=== PATIENT | male | born 1950 | race Caucasian/White ===

== ENCOUNTER → 2017-11-26 | Outpatient (CLI) | payer MEDICARE, OTHER | END | disposition home or self-care (01) | LOC: VAS 16:35 | DX: I82.4Z2 Acute embolism and thrombosis of unspecified deep veins of left distal lower extremity (principal) | CPT/HCPCS: 93971 ==

== ENCOUNTER 2017-11-27 09:54 | Day surgery (SDC) | payer MEDICARE, OTHER, MEDICAID ==
[2017-11-27 11:15] LABS: ADD MAN DIFF? NO
[2017-11-27 11:17] LABS: WHITE BLOOD COUNT 11.3 10^3/ul (4.8-10.8)
[2017-11-27 11:17] LABS: BASOPHILS % 0.1 % (0.0-2.0); EOSINOPHILS % 0.1 % (0.0-7.0); HEMOGLOBIN 12.4 g/dl (14.0-18.0); LYMPHOCYTES % 8.8 % (15.0-51.0); MEAN CORPUSCULAR HEMOGLOBIN 35.3 pg (29.0-33.0); MEAN CORPUSCULAR HGB CONC 34.4 g/dl (32.0-37.0); MEAN CORPUSCULAR VOLUME 102.6 fl (82.0-101.0); MEAN PLATELET VOLUME 11.2 fl (7.4-10.4); MONOCYTE # 1.1 10^3/ul (0.3-0.9); MONOCYTES % 9.8 % (0.0-11.0); NEUTROPHIL # 9.1 10^3/ul (1.6-7.5); NEUTROPHILS % 80.4 % (39.0-77.0); PLATELET COUNT 147 10^3/UL (140-415); RED BLOOD COUNT 3.51 10^6/ul (4.70-6.10); RED CELL DISTRIBUTION WIDTH 12.8 % (11.5-14.5)
[2017-11-27 11:42] LABS: ANION GAP 20 (8-16); CARBON DIOXIDE 27 mmol/L (21-31); GLUCOSE 198 mg/dl (70-220)
[2017-11-27 11:47] LABS: BLOOD UREA NITROGEN 41 mg/dl (7-20); CALCIUM 8.2 mg/dl (8.4-10.2); CREATININE 5.75 mg/dl (0.61-1.24); POTASSIUM 4.8 mmol/L (3.5-5.1); SODIUM 137 mmol/L (135-144)
[2017-11-27 11:49] LABS: CHLORIDE 95 mmol/L (97-110)
[2017-11-27 12:20] LABS: PROTIME 13.3 Sec (11.9-14.9)
[2017-11-27] MEDS ORDERED: THROMBIN 5000 UNIT VIAL (12:32)
[2017-11-27] MEDS ORDERED: GELATIN SIZE 100 SPONGE (12:32)
[2017-11-27] MEDS ORDERED: POLYMYXIN/BACITRACIN 1L IRRIG (12:33)
[2017-11-27] MEDS ORDERED: CEFAZOLIN 1 GM INJ (12:54)
[2017-11-27] MEDS ORDERED: PROPOFOL 20 ML (13:22)
[2017-11-27] MEDS ORDERED: LIDOCAINE 2% (SDV) 5 ML INJ (13:22)
[2017-11-27] MEDS: BUPIVACAINE 0.25% (MPF) 30 ML INJ (13:39)
[2017-11-27] MEDS: LIDOCAINE 1% (MPF) 30 ML INJ (13:39)
[2017-11-27] MEDS: HEPARIN 1000 UNITS/ML 10 ML INJ (13:39)
[2017-11-27] MEDS ORDERED: EPHEDrine SULFATE 50 MG/5 ML SYG (13:57)
[2017-11-27] MEDS ORDERED: OXYCODONE/ACETAMINOPHEN (5/325) TAB PO ×2 (14:30)
[2017-11-27] MEDS ORDERED: hydrALAzine 20 MG INJ IV (14:30)
[2017-11-27] MEDS ORDERED: DIPHENHYDRAMINE 50 MG INJ IV (14:30)
[2017-11-27] MEDS ORDERED: MEPERIDINE 25 MG INJ IV (14:30)
[2017-11-27] MEDS ORDERED: EPHEDrine SULFATE 50 MG/5 ML SYG IV (14:30)
[2017-11-27] MEDS ORDERED: ONDANSETRON 4 MG INJ IV (14:30)
[2017-11-27] MEDS ORDERED: LABETALOL HCL 20MG INJ IV (14:30)
[2017-11-27] MEDS ORDERED: METOCLOPRAMIDE 10 MG INJ IV (14:30)
[2017-11-27] MEDS ORDERED: MIDAZOLAM 1 MG/ML 2 ML INJ IV (14:30)
[2017-11-27] MEDS ORDERED: FENTAnyl 50 MCG/ML VIAL IV ×3 (14:30)
== END 2017-11-27 15:53 | disposition home or self-care (01) ==
LOC: SDS 09:54
DX: N18.6 End stage renal disease (principal); I12.0 Hypertensive chronic kidney disease with stage 5 chronic kidney disease or end stage renal disease; E78.5 Hyperlipidemia, unspecified; E11.9 Type 2 diabetes mellitus without complications; Z48.22 Encounter for aftercare following kidney transplant
CPT/HCPCS: 36901; 71045; 80048; 82962; 85025; 85610; 85730; 93005

== ENCOUNTER 2018-05-04 13:04 | Inpatient (IN) | payer MEDICARE, OTHER ==
[2018-05-04 14:07] LABS: ADD MAN DIFF? NO
[2018-05-04 14:09] LABS: ABNORMAL IP MESSAGE 1; BASOPHILS % 0.2 % (0.0-2.0); HEMATOCRIT 38.6 % (42.0-52.0); HEMOGLOBIN 12.8 g/dl (14.0-18.0); LYMPHOCYTES # 0.3 10^3/ul (0.8-2.9); LYMPHOCYTES % 2.7 % (15.0-51.0); MEAN CORPUSCULAR HEMOGLOBIN 33.5 pg (29.0-33.0); MEAN CORPUSCULAR HGB CONC 33.2 g/dl (32.0-37.0); MEAN PLATELET VOLUME 10.6 fl (7.4-10.4); MONOCYTE # 1.1 10^3/ul (0.3-0.9); MONOCYTES % 8.5 % (0.0-11.0); NEUTROPHIL # 11.2 10^3/ul (1.6-7.5); NEUTROPHILS % 87.7 % (39.0-77.0); PLATELET COUNT 140 10^3/UL (140-415); POSITIVE DIFF @See below; RED BLOOD COUNT 3.82 10^6/ul (4.70-6.10); RED CELL DISTRIBUTION WIDTH 12.8 % (11.5-14.5)
[2018-05-04 14:09] LABS: WHITE BLOOD COUNT 12.7 10^3/ul (4.8-10.8)
[2018-05-04 14:28] LABS: ALANINE AMINOTRANSFERASE 15 IU/L (13-69); ALBUMIN 3.3 g/dl (3.3-4.9); ALBUMIN/GLOBULIN RATIO 0.97; ALKALINE PHOSPHATASE 81 IU/L (42-121); ANION GAP 21 (8-16); ASPARTATE AMINO TRANSFERASE 14 IU/L (15-46); BILIRUBIN,INDIRECT 0.7 mg/dl (0-1.1); BILIRUBIN,TOTAL 0.7 mg/dl (0.2-1.3); BLOOD UREA NITROGEN 34 mg/dl (7-20); CALCIUM 8.1 mg/dl (8.4-10.2); CARBON DIOXIDE 23 mmol/L (21-31); CHLORIDE 92 mmol/L (97-110); CREATININE 6.89 mg/dl (0.61-1.24); GLUCOSE 136 mg/dl (70-220); POTASSIUM 4.6 mmol/L (3.5-5.1); SODIUM 131 mmol/L (135-144); TOTAL PROTEIN 6.7 g/dl (6.1-8.1)
[2018-05-04 14:29] LABS: INR 1.09; PROTIME 14.2 Sec (11.9-14.9); PT RATIO 1.1
[2018-05-04 14:31] LABS: LACTIC ACID 2.1 mmol/L (0.5-2.0)
[2018-05-04 14:38] LABS: TROPONIN-I 0.035 ng/ml (0.000-0.120)
[2018-05-04 14:39] LABS: PARTIAL THROMBOPLASTIN TIME 63.6 Sec (25.0-35.0)
[2018-05-04] MEDS: PIPER-TAZO 2.25 GM (PMX) 50 ML IVPB (15:43)
[2018-05-04] MEDS: VANCOMYCIN 1 GM (PMX) 250 ML IVPB (16:03)
[2018-05-04 16:24] LABS: LACTIC ACID 3.3 mmol/L (0.5-2.0)
[2018-05-04] MEDS ORDERED: VANCOMYCIN IV PER PHARMACY XX (17:30)
[2018-05-04] MEDS ORDERED: DOCUSATE SODIUM 100 MG CAP PO (17:30)
[2018-05-04] MEDS ORDERED: NACL 0.9% 3 ML SYG IV (17:30)
[2018-05-04] MEDS ORDERED: ONDANSETRON 4 MG INJ IV (17:30)
[2018-05-04] MEDS ORDERED: GLUCAGON 1 MG INJ IM (18:00)
[2018-05-04] MEDS ORDERED: GLUCOSE GEL 15 GRAM TUBE PO ×2 (18:00)
[2018-05-04] MEDS ORDERED: GLUCOSE GEL 15 GRAM TUBE BUCCAL (18:00)
[2018-05-04] MEDS: INSULIN ASPART [NOVOLOG] 3 ML PEN SC ×2 (18:00→21:00)
[2018-05-04] MEDS ORDERED: DEXTROSE 50% 50 ML SYRINGE IV ×2 (18:00)
[2018-05-04 18:37] LABS: LACTIC ACID 1.8 mmol/L (0.5-2.0)
[2018-05-04 19:04] LABS: TROPONIN-I 0.039 ng/ml (0.000-0.120)
[2018-05-04] MEDS: Discontinue current oral sulfonylureas (glyburide, glipizide, and/or glimepiride) prior to XX (19:31)
[2018-05-04] MEDS: HYPOGLYCEMIA PROTOCOL when Glucose is <70 mg/dL or symptomatic <90 mg/dL. XX (19:31)
[2018-05-04] MEDS: MIDODRINE 5 MG TAB PO (21:00)
[2018-05-04] MEDS: HYDROCODONE/APAP (5/325) TAB PO (21:30)
[2018-05-04] MEDS: HEPARIN 5,000 UNIT/0.5 ML VIAL SC (21:35)
[2018-05-04] MEDS: INSULIN DETEMIR [LEVEMIR] 3ML CART SC (22:26)
[2018-05-04] MEDS: SOD CHLORIDE 0.9% 1,000 ML IV (22:27)
[2018-05-04] MEDS: MEROPENEM 500MG/50 ML (PMX) 50 ML IVPB (22:27)
[2018-05-05] MEDS: ACCU-CHEK XX (02:00)
[2018-05-05] MEDS: PANTOPRAZOLE 40 MG INJ IV (05:15)
[2018-05-05] MEDS ORDERED: PENDING SANTYL ORDER FOR WOUND CARE XX (05:30)
[2018-05-05] MEDS: INSULIN ASPART [NOVOLOG] 3 ML PEN SC ×4 (08:00→20:54)
[2018-05-05] MEDS: MIDODRINE 5 MG TAB PO ×2 (08:11→20:57)
[2018-05-05] MEDS: HYDROCODONE/APAP (5/325) TAB PO ×2 (08:12→13:43)
[2018-05-05] MEDS: HEPARIN 5,000 UNIT/0.5 ML VIAL SC ×2 (08:15→21:03)
[2018-05-05 08:54] LABS: ADD MAN DIFF? NO
[2018-05-05 08:58] LABS: WHITE BLOOD COUNT 7.9 10^3/ul (4.8-10.8)
[2018-05-05 08:58] LABS: BASOPHILS % 0.1 % (0.0-2.0); EOSINOPHILS # 0.1 10^3/ul (0.0-0.5); HEMATOCRIT 37.7 % (42.0-52.0); HEMOGLOBIN 12.5 g/dl (14.0-18.0); LYMPHOCYTES # 0.8 10^3/ul (0.8-2.9); LYMPHOCYTES % 10.6 % (15.0-51.0); MEAN CORPUSCULAR HEMOGLOBIN 33.4 pg (29.0-33.0); MEAN CORPUSCULAR HGB CONC 33.2 g/dl (32.0-37.0); MEAN CORPUSCULAR VOLUME 100.8 fl (82.0-101.0); MEAN PLATELET VOLUME 10.4 fl (7.4-10.4); MONOCYTE # 0.8 10^3/ul (0.3-0.9); MONOCYTES % 10.3 % (0.0-11.0); NEUTROPHIL # 6.1 10^3/ul (1.6-7.5); NEUTROPHILS % 77.2 % (39.0-77.0); PLATELET COUNT 139 10^3/UL (140-415); RED BLOOD COUNT 3.74 10^6/ul (4.70-6.10); RED CELL DISTRIBUTION WIDTH 12.8 % (11.5-14.5)
[2018-05-05 09:21] LABS: ALANINE AMINOTRANSFERASE 15 IU/L (13-69); ALBUMIN 2.9 g/dl (3.3-4.9); ALBUMIN/GLOBULIN RATIO 0.96; ALKALINE PHOSPHATASE 74 IU/L (42-121); ANION GAP 15 (8-16); ASPARTATE AMINO TRANSFERASE 13 IU/L (15-46); BILIRUBIN,INDIRECT 0.2 mg/dl (0-1.1); BILIRUBIN,TOTAL 0.2 mg/dl (0.2-1.3); BLOOD UREA NITROGEN 49 mg/dl (7-20); CALCIUM 8.2 mg/dl (8.4-10.2); CARBON DIOXIDE 25 mmol/L (21-31); CHLORIDE 97 mmol/L (97-110); CREATININE 8.08 mg/dl (0.61-1.24); GLUCOSE 76 mg/dl (70-220); MAGNESIUM 2.4 mg/dl (1.7-2.5); PHOSPHORUS 5.5 mg/dl (2.5-4.9); POTASSIUM 4.1 mmol/L (3.5-5.1); SODIUM 133 mmol/L (135-144); TOTAL PROTEIN 5.9 g/dl (6.1-8.1)
[2018-05-05] MEDS: SOD CHLORIDE 0.9% 1,000 ML IV (13:13)
[2018-05-05] MEDS ORDERED: ALBUMIN HUMAN 25% 100 ML IV (18:00)
[2018-05-05] MEDS: morphine 2 MG INJ IV (18:22)
[2018-05-05 18:48] LABS: ADD UMIC YES; UR ASCORBIC ACID NEGATIVE (NEGATIVE); UR BACTERIA MODERATE /HPF (NONE SEEN); UR BILIRUBIN (Dip) NEGATIVE (NEGATIVE); UR BLOOD (Dip) 2+ mg/dL (NEGATIVE); UR CLARITY CLOUDY (CLEAR); UR COLOR YELLOW (YELLOW); UR GLUCOSE (Dip) NEGATIVE (NEGATIVE); UR KETONES (Dip) TRACE mg/dL (NEGATIVE); UR LEUKOCYTE ESTERASE (Dip) 3+ Leu/ul (NEGATIVE); UR MUCUS FEW /HPF (NONE SEEN); UR NITRITE (Dip) NEGATIVE (NEGATIVE); UR RBC 28 /HPF (0-5); UR SPECIFIC GRAVITY (Dip) 1.011 (1.003-1.030); UR TOTAL PROTEIN (Dip) 3+ mg/dl (NEGATIVE); UR UROBILINOGEN (Dip) NEGATIVE (NEGATIVE); UR WBC > 182 /HPF (0-5)
[2018-05-05] MEDS: MEROPENEM 500MG/50 ML (PMX) 50 ML IVPB (20:56)
[2018-05-05] MEDS ORDERED: INSULIN DETEMIR [LEVEMIR] 3ML CART SC (21:00)
[2018-05-06] MEDS: morphine 2 MG INJ IV ×3 (00:50→14:09)
[2018-05-06] MEDS: ACCU-CHEK XX (01:51)
[2018-05-06] MEDS: HYDROCODONE/APAP (5/325) TAB PO ×2 (02:44→11:02)
[2018-05-06] MEDS: PANTOPRAZOLE 40 MG INJ IV (06:06)
[2018-05-06 07:53] LABS: ADD MAN DIFF? NO
[2018-05-06 07:59] LABS: BASOPHILS % 0.1 % (0.0-2.0); EOSINOPHILS # 0.1 10^3/ul (0.0-0.5); EOSINOPHILS % 0.8 % (0.0-7.0); HEMATOCRIT 38.5 % (42.0-52.0); HEMOGLOBIN 12.5 g/dl (14.0-18.0); LYMPHOCYTES # 0.8 10^3/ul (0.8-2.9); LYMPHOCYTES % 10.4 % (15.0-51.0); MEAN CORPUSCULAR HEMOGLOBIN 32.6 pg (29.0-33.0); MEAN CORPUSCULAR HGB CONC 32.5 g/dl (32.0-37.0); MEAN CORPUSCULAR VOLUME 100.5 fl (82.0-101.0); MEAN PLATELET VOLUME 10.5 fl (7.4-10.4); MONOCYTE # 0.7 10^3/ul (0.3-0.9); MONOCYTES % 8.4 % (0.0-11.0); NEUTROPHIL # 6.4 10^3/ul (1.6-7.5); NEUTROPHILS % 79.5 % (39.0-77.0); PLATELET COUNT 155 10^3/UL (140-415); RED BLOOD COUNT 3.83 10^6/ul (4.70-6.10); RED CELL DISTRIBUTION WIDTH 12.7 % (11.5-14.5)
[2018-05-06] MEDS: INSULIN ASPART [NOVOLOG] 3 ML PEN SC ×4 (08:00→21:00)
[2018-05-06] MEDS: MIDODRINE 5 MG TAB PO ×3 (08:04→21:27)
[2018-05-06] MEDS: predniSONE 5 MG TAB PO (08:09)
[2018-05-06] MEDS: MULTIVIT/CA CARB/B CMPLX/FA TAB PO (08:09)
[2018-05-06] MEDS: HEPARIN 5,000 UNIT/0.5 ML VIAL SC ×2 (08:10→21:00)
[2018-05-06 08:37] LABS: ANION GAP 19 (8-16); BLOOD UREA NITROGEN 55 mg/dl (7-20); CALCIUM 8.2 mg/dl (8.4-10.2); CARBON DIOXIDE 20 mmol/L (21-31); CHLORIDE 98 mmol/L (97-110); GLUCOSE 80 mg/dl (70-220); POTASSIUM 4.6 mmol/L (3.5-5.1); SODIUM 132 mmol/L (135-144)
[2018-05-06 08:38] LABS: PHOSPHORUS 5.4 mg/dl (2.5-4.9); VANCOMYCIN,RANDOM 8.9 ug/ml
[2018-05-06 08:38] LABS: MAGNESIUM 2.4 mg/dl (1.7-2.5)
[2018-05-06] MEDS: VANCOMYCIN 1 GM 250 ML IVPB (12:02)
[2018-05-06] MEDS ORDERED: GENTAMICIN IV PER PHARMACY XX (16:00)
[2018-05-06] MEDS: HYDROCODONE/APAP (10/325) TAB PO (17:06)
[2018-05-06 18:38] LABS: TROPONIN-I 0.013 ng/ml (0.000-0.120)
[2018-05-06 18:42] LABS: CK-MB 1.28 ng/ml (0.0-2.4); CREATINE KINASE < 20 IU/L (23-200)
[2018-05-06 21:38] LABS: HEPATITIS B SURFACE ANTIGEN NEGATIVE (NEGATIVE)
[2018-05-06] MEDS: ALBUMIN HUMAN 25% 100 ML IV (22:22)
[2018-05-06] MEDS: HEPARIN 1000 UNITS/ML 10 ML INJ CATHETER (23:53)
[2018-05-07] MEDS: HYDROCODONE/APAP (10/325) TAB PO ×2 (00:49→08:43)
[2018-05-07] MEDS: GENTAMICIN 140 MG in DEXTROSE 5% 100 ML IVPB (00:51)
[2018-05-07 01:04] LABS: CREATINE KINASE 20 IU/L (23-200)
[2018-05-07 01:17] LABS: CK INDEX 6.7; TROPONIN-I 0.019 ng/ml (0.000-0.120)
[2018-05-07 01:27] LABS: CK-MB 1.34 ng/ml (0.0-2.4)
[2018-05-07] MEDS: ACCU-CHEK XX (02:00)
[2018-05-07] MEDS: PANTOPRAZOLE 40 MG INJ IV (05:33)
[2018-05-07] MEDS ORDERED: GENTAMICIN 80 MG/NS (PMX) 50 ML IVPB (07:00)
[2018-05-07] MEDS: INSULIN ASPART [NOVOLOG] 3 ML PEN SC ×4 (08:00→21:00)
[2018-05-07 08:15] LABS: ADD MAN DIFF? NO
[2018-05-07 08:20] LABS: WHITE BLOOD COUNT 7.1 10^3/ul (4.8-10.8)
[2018-05-07 08:20] LABS: ABNORMAL IP MESSAGE 1; BASOPHILS % 0.1 % (0.0-2.0); EOSINOPHILS # 0.1 10^3/ul (0.0-0.5); EOSINOPHILS % 0.8 % (0.0-7.0); HEMATOCRIT 38.4 % (42.0-52.0); HEMOGLOBIN 12.2 g/dl (14.0-18.0); LYMPHOCYTES # 0.6 10^3/ul (0.8-2.9); LYMPHOCYTES % 8.1 % (15.0-51.0); MEAN CORPUSCULAR HEMOGLOBIN 32.5 pg (29.0-33.0); MEAN CORPUSCULAR HGB CONC 31.8 g/dl (32.0-37.0); MEAN CORPUSCULAR VOLUME 102.4 fl (82.0-101.0); MEAN PLATELET VOLUME 10.2 fl (7.4-10.4); MONOCYTE # 0.7 10^3/ul (0.3-0.9); MONOCYTES % 10.4 % (0.0-11.0); NEUTROPHIL # 5.7 10^3/ul (1.6-7.5); NEUTROPHILS % 80.2 % (39.0-77.0); PLATELET COUNT 175 10^3/UL (140-415); POSITIVE DIFF @See below; RED BLOOD COUNT 3.75 10^6/ul (4.70-6.10); RED CELL DISTRIBUTION WIDTH 12.8 % (11.5-14.5)
[2018-05-07] MEDS: MULTIVIT/CA CARB/B CMPLX/FA TAB PO (08:42)
[2018-05-07] MEDS: predniSONE 5 MG TAB PO (08:42)
[2018-05-07] MEDS: MIDODRINE 5 MG TAB PO ×2 (08:43→20:29)
[2018-05-07 08:45] LABS: MAGNESIUM 2.3 mg/dl (1.7-2.5)
[2018-05-07 08:52] LABS: ANION GAP 19 (8-16); BLOOD UREA NITROGEN 30 mg/dl (7-20); CALCIUM 8.3 mg/dl (8.4-10.2); CARBON DIOXIDE 25 mmol/L (21-31); CHLORIDE 99 mmol/L (97-110); CREATININE 5.88 mg/dl (0.61-1.24); GLUCOSE 97 mg/dl (70-220); POTASSIUM 4.7 mmol/L (3.5-5.1); SODIUM 138 mmol/L (135-144)
[2018-05-07] MEDS: HEPARIN 5,000 UNIT/0.5 ML VIAL SC ×2 (08:54→20:29)
[2018-05-07] MEDS: morphine LIQ (10 MG/5 ML) CUP PO ×3 (10:39→18:54)
[2018-05-07] MEDS ORDERED: SODIUM CHLORIDE 0.9% 1L BAG IV (17:00)
[2018-05-08] MEDS: ACCU-CHEK XX (02:00)
[2018-05-08] MEDS: morphine LIQ (10 MG/5 ML) CUP PO ×3 (04:48→14:47)
[2018-05-08] MEDS: PANTOPRAZOLE 40 MG INJ IV (05:49)
[2018-05-08 07:33] LABS: ADD MAN DIFF? NO
[2018-05-08 07:41] LABS: BASOPHILS % 0.1 % (0.0-2.0); EOSINOPHILS # 0.1 10^3/ul (0.0-0.5); EOSINOPHILS % 1.5 % (0.0-7.0); HEMATOCRIT 37.4 % (42.0-52.0); HEMOGLOBIN 12.1 g/dl (14.0-18.0); LYMPHOCYTES # 0.7 10^3/ul (0.8-2.9); LYMPHOCYTES % 9.7 % (15.0-51.0); MEAN CORPUSCULAR HGB CONC 32.4 g/dl (32.0-37.0); MEAN CORPUSCULAR VOLUME 101.9 fl (82.0-101.0); MEAN PLATELET VOLUME 9.8 fl (7.4-10.4); MONOCYTE # 0.6 10^3/ul (0.3-0.9); NEUTROPHIL # 5.5 10^3/ul (1.6-7.5); NEUTROPHILS % 80.3 % (39.0-77.0); PLATELET COUNT 180 10^3/UL (140-415); RED BLOOD COUNT 3.67 10^6/ul (4.70-6.10); RED CELL DISTRIBUTION WIDTH 12.7 % (11.5-14.5)
[2018-05-08 07:41] LABS: WHITE BLOOD COUNT 6.9 10^3/ul (4.8-10.8)
[2018-05-08] MEDS: INSULIN ASPART [NOVOLOG] 3 ML PEN SC ×4 (08:00→20:49)
[2018-05-08 08:04] LABS: MAGNESIUM 2.3 mg/dl (1.7-2.5)
[2018-05-08 08:04] LABS: PHOSPHORUS 5.4 mg/dl (2.5-4.9)
[2018-05-08 08:05] LABS: ANION GAP 14 (8-16); BLOOD UREA NITROGEN 43 mg/dl (7-20); CALCIUM 8.4 mg/dl (8.4-10.2); CARBON DIOXIDE 25 mmol/L (21-31); CHLORIDE 101 mmol/L (97-110); CREATININE 7.24 mg/dl (0.61-1.24); GLUCOSE 138 mg/dl (70-220); POTASSIUM 4.1 mmol/L (3.5-5.1); SODIUM 136 mmol/L (135-144)
[2018-05-08] MEDS: predniSONE 5 MG TAB PO (08:49)
[2018-05-08] MEDS: MIDODRINE 5 MG TAB PO ×2 (08:49→20:49)
[2018-05-08] MEDS: MULTIVIT/CA CARB/B CMPLX/FA TAB PO (08:49)
[2018-05-08] MEDS: HEPARIN 5,000 UNIT/0.5 ML VIAL SC ×2 (09:00→20:49)
[2018-05-08] MEDS: HYDROCODONE/APAP (10/325) TAB PO ×3 (11:38→23:47)
[2018-05-08] MEDS: HEPARIN 1000 UNITS/ML 10 ML INJ CATHETER (12:18)
[2018-05-08] MEDS: LIDOCAINE 1% (MDV) 10 ML INJ (15:37)
[2018-05-08] MEDS: GENTAMICIN 100 MG/50 ML NS IVPB (17:45)
[2018-05-09] MEDS: ACCU-CHEK XX (02:00)
[2018-05-09] MEDS: HYDROCODONE/APAP (10/325) TAB PO ×5 (04:43→20:59)
[2018-05-09] MEDS: PANTOPRAZOLE 40 MG INJ IV (07:01)
[2018-05-09] MEDS: INSULIN ASPART [NOVOLOG] 3 ML PEN SC ×4 (08:12→20:43)
[2018-05-09] MEDS: MULTIVIT/CA CARB/B CMPLX/FA TAB PO (08:54)
[2018-05-09] MEDS: predniSONE 5 MG TAB PO (08:54)
[2018-05-09] MEDS: MIDODRINE 5 MG TAB PO ×2 (09:00→20:37)
[2018-05-09] MEDS: HEPARIN 5,000 UNIT/0.5 ML VIAL SC ×2 (09:02→20:40)
[2018-05-10] MEDS: ACCU-CHEK XX (02:00)
[2018-05-10] MEDS: PANTOPRAZOLE 40 MG INJ IV (05:27)
[2018-05-10] MEDS: HYDROCODONE/APAP (10/325) TAB PO ×5 (05:30→23:53)
[2018-05-10 06:04] LABS: ANION GAP 15 (8-16); BLOOD UREA NITROGEN 36 mg/dl (7-20); CALCIUM 8.2 mg/dl (8.4-10.2); CARBON DIOXIDE 27 mmol/L (21-31); CHLORIDE 99 mmol/L (97-110); CREATININE 6.22 mg/dl (0.61-1.24); GLUCOSE 123 mg/dl (70-220); POTASSIUM 4.6 mmol/L (3.5-5.1); SODIUM 136 mmol/L (135-144)
[2018-05-10] MEDS: INSULIN ASPART [NOVOLOG] 3 ML PEN SC ×4 (08:00→21:00)
[2018-05-10] MEDS: HEPARIN 5,000 UNIT/0.5 ML VIAL SC ×2 (08:20→21:00)
[2018-05-10] MEDS: predniSONE 5 MG TAB PO (08:21)
[2018-05-10] MEDS: MULTIVIT/CA CARB/B CMPLX/FA TAB PO (08:21)
[2018-05-10] MEDS: BALSAM PERU/CASTOR OIL 60 GM TUBE TOP ×2 (08:22→22:56)
[2018-05-10] MEDS: MIDODRINE 5 MG TAB PO (08:22)
[2018-05-11] MEDS: DEXTROSE 5%-0.45% NACL 1,000 ML IV (00:03)
[2018-05-11] MEDS: INSULIN ASPART [NOVOLOG] 3 ML PEN SC ×6 (01:00→21:00)
[2018-05-11] MEDS: ACCU-CHEK XX (02:00)
[2018-05-11] MEDS: PANTOPRAZOLE 40 MG INJ IV (05:16)
[2018-05-11 06:10] LABS: ADD MAN DIFF? NO
[2018-05-11 06:19] LABS: BASOPHILS % 0.3 % (0.0-2.0); EOSINOPHILS # 0.1 10^3/ul (0.0-0.5); EOSINOPHILS % 1.7 % (0.0-7.0); HEMATOCRIT 38.8 % (42.0-52.0); HEMOGLOBIN 12.5 g/dl (14.0-18.0); LYMPHOCYTES # 0.8 10^3/ul (0.8-2.9); LYMPHOCYTES % 11.4 % (15.0-51.0); MEAN CORPUSCULAR HEMOGLOBIN 32.6 pg (29.0-33.0); MEAN CORPUSCULAR HGB CONC 32.2 g/dl (32.0-37.0); MEAN PLATELET VOLUME 10.5 fl (7.4-10.4); MONOCYTE # 0.8 10^3/ul (0.3-0.9); MONOCYTES % 11.1 % (0.0-11.0); NEUTROPHIL # 5.2 10^3/ul (1.6-7.5); NEUTROPHILS % 74.2 % (39.0-77.0); PLATELET COUNT 162 10^3/UL (140-415); RED BLOOD COUNT 3.84 10^6/ul (4.70-6.10); RED CELL DISTRIBUTION WIDTH 12.6 % (11.5-14.5)
[2018-05-11 06:29] LABS: ALANINE AMINOTRANSFERASE 23 IU/L (13-69); ALBUMIN 2.8 g/dl (3.3-4.9); ALBUMIN/GLOBULIN RATIO 0.93; ALKALINE PHOSPHATASE 84 IU/L (42-121); ASPARTATE AMINO TRANSFERASE 17 IU/L (15-46); BILIRUBIN,INDIRECT 0.1 mg/dl (0-1.1); BILIRUBIN,TOTAL 0.1 mg/dl (0.2-1.3); BLOOD UREA NITROGEN 48 mg/dl (7-20); CALCIUM 8.1 mg/dl (8.4-10.2); CARBON DIOXIDE 23 mmol/L (21-31); CHLORIDE 98 mmol/L (97-110); CREATININE 7.07 mg/dl (0.61-1.24); GLUCOSE 128 mg/dl (70-220); POTASSIUM 4.6 mmol/L (3.5-5.1); TOTAL PROTEIN 5.8 g/dl (6.1-8.1)
[2018-05-11 07:01] LABS: ANION GAP 15 (8-16)
[2018-05-11 07:09] LABS: SODIUM 131 mmol/L (135-144)
[2018-05-11] MEDS: morphine 2 MG INJ IV (07:54)
[2018-05-11] MEDS: predniSONE 5 MG TAB PO (08:50)
[2018-05-11] MEDS: MULTIVIT/CA CARB/B CMPLX/FA TAB PO (08:50)
[2018-05-11] MEDS: HEPARIN 5,000 UNIT/0.5 ML VIAL SC ×2 (08:51→21:00)
[2018-05-11] MEDS: BALSAM PERU/CASTOR OIL 60 GM TUBE TOP ×2 (08:55→21:04)
[2018-05-11] MEDS ORDERED: LIDOCAINE 1% (MDV) 20 ML INJ (14:59)
[2018-05-11] MEDS ORDERED: HEPARIN 1000 UNITS/ML 10 ML INJ (14:59)
[2018-05-11] MEDS ORDERED: MIDAZOLAM 1 MG/ML 2 ML INJ (15:17)
[2018-05-11] MEDS ORDERED: FENTAnyl 50 MCG/ML VIAL (15:17)
[2018-05-11] MEDS ORDERED: SOD CHLORIDE 0.9% 500 ML (15:23)
[2018-05-11] MEDS ORDERED: ALBUMIN HUMAN 25% 50 ML IV (18:00)
[2018-05-11] MEDS ORDERED: SOD CHLORIDE 0.9% 1,000 ML IV (18:00)
[2018-05-11] MEDS: HYDROCODONE/APAP (10/325) TAB PO (18:26)
[2018-05-11] MEDS: METOPROLOL 25 MG TAB PO (21:04)
[2018-05-12] MEDS: DEXTROSE 5%-0.45% NACL 1,000 ML IV (00:06)
[2018-05-12] MEDS: INSULIN ASPART [NOVOLOG] 3 ML PEN SC ×6 (01:00→21:00)
[2018-05-12] MEDS: HYDROCODONE/APAP (10/325) TAB PO ×3 (01:52→11:35)
[2018-05-12] MEDS: ACCU-CHEK XX (02:00)
[2018-05-12] MEDS: PANTOPRAZOLE 40 MG INJ IV (05:26)
[2018-05-12 05:51] LABS: ADD MAN DIFF? NO
[2018-05-12 06:00] LABS: WHITE BLOOD COUNT 9.9 10^3/ul (4.8-10.8)
[2018-05-12 06:00] LABS: ABNORMAL IP MESSAGE 1; BASOPHILS % 0.3 % (0.0-2.0); EOSINOPHILS # 0.1 10^3/ul (0.0-0.5); EOSINOPHILS % 0.9 % (0.0-7.0); HEMATOCRIT 36.2 % (42.0-52.0); HEMOGLOBIN 12.2 g/dl (14.0-18.0); LYMPHOCYTES # 0.6 10^3/ul (0.8-2.9); LYMPHOCYTES % 5.5 % (15.0-51.0); MEAN CORPUSCULAR HEMOGLOBIN 33.7 pg (29.0-33.0); MEAN CORPUSCULAR HGB CONC 33.7 g/dl (32.0-37.0); MEAN PLATELET VOLUME 10.1 fl (7.4-10.4); MONOCYTE # 0.7 10^3/ul (0.3-0.9); MONOCYTES % 7.5 % (0.0-11.0); NEUTROPHIL # 8.4 10^3/ul (1.6-7.5); NEUTROPHILS % 84.4 % (39.0-77.0); PLATELET COUNT 219 10^3/UL (140-415); POSITIVE DIFF @See below; RED BLOOD COUNT 3.62 10^6/ul (4.70-6.10); RED CELL DISTRIBUTION WIDTH 12.6 % (11.5-14.5)
[2018-05-12 06:13] LABS: PHOSPHORUS 6.1 mg/dl (2.5-4.9)
[2018-05-12 06:32] LABS: ANION GAP 17 (8-16); BLOOD UREA NITROGEN 56 mg/dl (7-20); CALCIUM 7.8 mg/dl (8.4-10.2); CARBON DIOXIDE 22 mmol/L (21-31); CHLORIDE 97 mmol/L (97-110); CREATININE 8.13 mg/dl (0.61-1.24); GLUCOSE 127 mg/dl (70-220); POTASSIUM 5.3 mmol/L (3.5-5.1); SODIUM 131 mmol/L (135-144)
[2018-05-12] MEDS: predniSONE 5 MG TAB PO (07:43)
[2018-05-12] MEDS: MULTIVIT/CA CARB/B CMPLX/FA TAB PO (07:44)
[2018-05-12] MEDS: METOPROLOL 25 MG TAB PO ×2 (08:54→20:38)
[2018-05-12] MEDS: HEPARIN 5,000 UNIT/0.5 ML VIAL SC ×2 (08:54→20:39)
[2018-05-12] MEDS: BALSAM PERU/CASTOR OIL 60 GM TUBE TOP ×2 (09:24→20:35)
[2018-05-12] MEDS ORDERED: HEPARIN 1000 UNITS/NS (A-LINE) 0 ML (14:36)
[2018-05-12] MEDS ORDERED: HEPARIN 1000 UNITS/ML 10 ML INJ (14:36)
[2018-05-12] MEDS ORDERED: LIDOCAINE 1% (MDV) 20 ML INJ ×2 (14:49→15:13)
[2018-05-12] MEDS: ALBUMIN HUMAN 25% 50 ML IV (18:06)
[2018-05-12] MEDS: HEPARIN 1000 UNITS/ML 10 ML INJ CATHETER (20:21)
[2018-05-13] MEDS: ACCU-CHEK XX (02:00)
[2018-05-13] MEDS: HYDROCODONE/APAP (10/325) TAB PO ×4 (02:07→20:00)
[2018-05-13] MEDS: PANTOPRAZOLE 40 MG INJ IV (05:16)
[2018-05-13] MEDS: morphine LIQ (10 MG/5 ML) CUP PO ×4 (06:04→06:52)
[2018-05-13] MEDS: INSULIN ASPART [NOVOLOG] 3 ML PEN SC ×4 (07:30→21:00)
[2018-05-13] MEDS: BALSAM PERU/CASTOR OIL 60 GM TUBE TOP ×2 (08:39→21:11)
[2018-05-13] MEDS: MULTIVIT/CA CARB/B CMPLX/FA TAB PO (08:39)
[2018-05-13] MEDS: predniSONE 5 MG TAB PO (08:39)
[2018-05-13] MEDS: HEPARIN 5,000 UNIT/0.5 ML VIAL SC ×2 (08:40→21:13)
[2018-05-13] MEDS: NIFEdipine (XL) 30 MG TAB PO (08:41)
[2018-05-13] MEDS: METOPROLOL 25 MG TAB PO ×2 (08:42→21:11)
[2018-05-13] MEDS: GENTAMICIN 100 MG/50 ML NS IVPB (14:34)
[2018-05-14] MEDS: HYDROCODONE/APAP (10/325) TAB PO ×6 (00:08→22:56)
[2018-05-14] MEDS: ACCU-CHEK XX (00:43)
[2018-05-14 06:00] LABS: ADD MAN DIFF? NO
[2018-05-14 06:07] LABS: BASOPHILS % 0.1 % (0.0-2.0); EOSINOPHILS # 0.1 10^3/ul (0.0-0.5); EOSINOPHILS % 0.9 % (0.0-7.0); HEMATOCRIT 33.4 % (42.0-52.0); LYMPHOCYTES % 11.9 % (15.0-51.0); MEAN CORPUSCULAR HEMOGLOBIN 32.5 pg (29.0-33.0); MEAN CORPUSCULAR HGB CONC 32.9 g/dl (32.0-37.0); MEAN CORPUSCULAR VOLUME 98.8 fl (82.0-101.0); MONOCYTE # 1.2 10^3/ul (0.3-0.9); MONOCYTES % 14.4 % (0.0-11.0); NEUTROPHIL # 5.8 10^3/ul (1.6-7.5); NEUTROPHILS % 71.7 % (39.0-77.0); PLATELET COUNT 229 10^3/UL (140-415); RED BLOOD COUNT 3.38 10^6/ul (4.70-6.10)
[2018-05-14] MEDS: PANTOPRAZOLE 40 MG INJ IV (06:10)
[2018-05-14 06:36] LABS: ALANINE AMINOTRANSFERASE 20 IU/L (13-69); ALBUMIN/GLOBULIN RATIO 0.93; ALKALINE PHOSPHATASE 83 IU/L (42-121); ANION GAP 15 (8-16); ASPARTATE AMINO TRANSFERASE 21 IU/L (15-46); BILIRUBIN,INDIRECT 0.3 mg/dl (0-1.1); BILIRUBIN,TOTAL 0.3 mg/dl (0.2-1.3); BLOOD UREA NITROGEN 37 mg/dl (7-20); CALCIUM 7.8 mg/dl (8.4-10.2); CARBON DIOXIDE 25 mmol/L (21-31); CHLORIDE 95 mmol/L (97-110); CREATININE 6.24 mg/dl (0.61-1.24); GLUCOSE 103 mg/dl (70-220); POTASSIUM 4.2 mmol/L (3.5-5.1); SODIUM 131 mmol/L (135-144); TOTAL PROTEIN 6.2 g/dl (6.1-8.1)
[2018-05-14] MEDS: INSULIN ASPART [NOVOLOG] 3 ML PEN SC ×4 (07:30→20:20)
[2018-05-14] MEDS: NIFEdipine (XL) 30 MG TAB PO (08:51)
[2018-05-14] MEDS: HEPARIN 5,000 UNIT/0.5 ML VIAL SC ×3 (08:51→22:56)
[2018-05-14] MEDS: METOPROLOL 25 MG TAB PO ×2 (08:51→20:20)
[2018-05-14] MEDS: BALSAM PERU/CASTOR OIL 60 GM TUBE TOP ×2 (08:52→20:20)
[2018-05-14] MEDS: predniSONE 5 MG TAB PO (08:52)
[2018-05-14] MEDS: MULTIVIT/CA CARB/B CMPLX/FA TAB PO (08:52)
[2018-05-14 20:48] LABS: HEPATITIS B SURFACE ANTIBODY POSITIVE (NEGATIVE)
[2018-05-15] MEDS: ACCU-CHEK XX ×2 (00:44→21:15)
[2018-05-15] MEDS: ACETAMINOPHEN 325 MG TAB PO (01:20)
[2018-05-15] MEDS: HEPARIN 1000 UNITS/ML 10 ML INJ CATHETER (03:00)
[2018-05-15] MEDS: HYDROCODONE/APAP (10/325) TAB PO ×2 (03:19→07:25)
[2018-05-15] MEDS: GENTAMICIN 100 MG/50 ML NS IVPB (03:19)
[2018-05-15] MEDS: PANTOPRAZOLE 40 MG INJ IV (05:17)
[2018-05-15] MEDS: INSULIN ASPART [NOVOLOG] 3 ML PEN SC ×4 (07:30→21:00)
[2018-05-15] MEDS: BALSAM PERU/CASTOR OIL 60 GM TUBE TOP ×2 (08:50→21:15)
[2018-05-15] MEDS: MULTIVIT/CA CARB/B CMPLX/FA TAB PO (08:50)
[2018-05-15] MEDS: HEPARIN 5,000 UNIT/0.5 ML VIAL SC ×2 (08:50→21:15)
[2018-05-15] MEDS: NIFEdipine (XL) 30 MG TAB PO (08:51)
[2018-05-15] MEDS: predniSONE 5 MG TAB PO (08:51)
[2018-05-15] MEDS: METOPROLOL 25 MG TAB PO ×2 (08:51→21:14)
[2018-05-15] MEDS ORDERED: HYDROmorphONE 0.5 MG/0.5 ML SYG IV (10:30)
[2018-05-15] MEDS: HYDROmorphONE 0.5 MG/0.5 ML SYG IV ×2 (11:24→18:38)
[2018-05-15] MEDS: CYCLOBENZAPRINE 10 MG TAB PO (12:53)
[2018-05-16] MEDS: HYDROmorphONE 0.5 MG/0.5 ML SYG IV ×2 (03:08→08:57)
[2018-05-16] MEDS: PANTOPRAZOLE (EC) 40 MG TAB PO (05:50)
[2018-05-16] MEDS: INSULIN ASPART [NOVOLOG] 3 ML PEN SC ×4 (07:30→20:35)
[2018-05-16] MEDS: HEPARIN 5,000 UNIT/0.5 ML VIAL SC ×2 (08:09→20:37)
[2018-05-16] MEDS: METOPROLOL 25 MG TAB PO ×2 (08:09→20:35)
[2018-05-16] MEDS: NIFEdipine (XL) 30 MG TAB PO (08:09)
[2018-05-16] MEDS: MULTIVIT/CA CARB/B CMPLX/FA TAB PO (08:56)
[2018-05-16] MEDS: predniSONE 5 MG TAB PO (08:56)
[2018-05-16] MEDS: BALSAM PERU/CASTOR OIL 60 GM TUBE TOP ×2 (09:00→20:38)
[2018-05-16] MEDS: HEPARIN 1000 UNITS/ML 10 ML INJ CATHETER (11:21)
[2018-05-16 12:23] LABS: ADD MAN DIFF? NO
[2018-05-16 12:26] LABS: WHITE BLOOD COUNT 8.8 10^3/ul (4.8-10.8)
[2018-05-16 12:26] LABS: ABNORMAL IP MESSAGE 1; BASOPHILS % 0.2 % (0.0-2.0); EOSINOPHILS % 0.2 % (0.0-7.0); HEMATOCRIT 35.2 % (42.0-52.0); HEMOGLOBIN 11.5 g/dl (14.0-18.0); LYMPHOCYTES # 0.4 10^3/ul (0.8-2.9); MEAN CORPUSCULAR HEMOGLOBIN 32.4 pg (29.0-33.0); MEAN CORPUSCULAR HGB CONC 32.7 g/dl (32.0-37.0); MEAN CORPUSCULAR VOLUME 99.2 fl (82.0-101.0); MEAN PLATELET VOLUME 9.6 fl (7.4-10.4); MONOCYTE # 0.9 10^3/ul (0.3-0.9); MONOCYTES % 10.3 % (0.0-11.0); NEUTROPHIL # 7.4 10^3/ul (1.6-7.5); NEUTROPHILS % 84.4 % (39.0-77.0); PLATELET COUNT 220 10^3/UL (140-415); POSITIVE DIFF @See below; RED BLOOD COUNT 3.55 10^6/ul (4.70-6.10); RED CELL DISTRIBUTION WIDTH 13.2 % (11.5-14.5)
[2018-05-16 12:42] LABS: AMMONIA < 9 umol/l (9-30)
[2018-05-16 12:45] LABS: ANION GAP 21 (8-16); BLOOD UREA NITROGEN 28 mg/dl (7-20); CALCIUM 8.1 mg/dl (8.4-10.2); CARBON DIOXIDE 22 mmol/L (21-31); CHLORIDE 94 mmol/L (97-110); CREATININE 4.77 mg/dl (0.61-1.24); GLUCOSE 98 mg/dl (70-220); POTASSIUM 4.2 mmol/L (3.5-5.1); SODIUM 133 mmol/L (135-144)
[2018-05-16] MEDS: GENTAMICIN 100 MG/50 ML NS IVPB (13:39)
[2018-05-16] MEDS: HYDROCODONE/APAP (5/325) TAB PO (17:26)
[2018-05-16] MEDS: ACCU-CHEK XX (20:46)
[2018-05-17] MEDS: HYDROCODONE/APAP (5/325) TAB PO ×4 (01:46→23:37)
[2018-05-17] MEDS: PANTOPRAZOLE (EC) 40 MG TAB PO (05:57)
[2018-05-17 06:49] LABS: WHITE BLOOD COUNT 10.7 10^3/ul (4.8-10.8)
[2018-05-17 06:49] LABS: ABNORMAL IP MESSAGE 1; BASOPHILS % 0.2 % (0.0-2.0); EOSINOPHILS % 0.2 % (0.0-7.0); HEMATOCRIT 34.6 % (42.0-52.0); HEMOGLOBIN 11.3 g/dl (14.0-18.0); LYMPHOCYTES # 0.6 10^3/ul (0.8-2.9); LYMPHOCYTES % 5.4 % (15.0-51.0); MEAN CORPUSCULAR HEMOGLOBIN 32.7 pg (29.0-33.0); MEAN CORPUSCULAR HGB CONC 32.7 g/dl (32.0-37.0); MEAN PLATELET VOLUME 9.8 fl (7.4-10.4); MONOCYTE # 0.9 10^3/ul (0.3-0.9); NEUTROPHIL # 9.1 10^3/ul (1.6-7.5); NEUTROPHILS % 85.7 % (39.0-77.0); PLATELET COUNT 253 10^3/UL (140-415); POSITIVE DIFF @See below; RED BLOOD COUNT 3.46 10^6/ul (4.70-6.10); RED CELL DISTRIBUTION WIDTH 13.4 % (11.5-14.5)
[2018-05-17 06:50] LABS: ADD MAN DIFF? NO
[2018-05-17 07:15] LABS: AMMONIA 24 umol/l (9-30)
[2018-05-17] MEDS: INSULIN ASPART [NOVOLOG] 3 ML PEN SC ×4 (07:30→21:00)
[2018-05-17] MEDS: BALSAM PERU/CASTOR OIL 60 GM TUBE TOP ×2 (09:00→21:11)
[2018-05-17] MEDS: METOPROLOL 25 MG TAB PO ×2 (09:00→21:07)
[2018-05-17 09:05] LABS: ANION GAP 17 (8-16); BLOOD UREA NITROGEN 34 mg/dl (7-20); CALCIUM 7.7 mg/dl (8.4-10.2); CARBON DIOXIDE 24 mmol/L (21-31); CHLORIDE 97 mmol/L (97-110); CREATININE 6.09 mg/dl (0.61-1.24); GLUCOSE 92 mg/dl (70-220); POTASSIUM 4.7 mmol/L (3.5-5.1); SODIUM 133 mmol/L (135-144)
[2018-05-17] MEDS: MULTIVIT/CA CARB/B CMPLX/FA TAB PO (10:46)
[2018-05-17] MEDS: predniSONE 5 MG TAB PO (10:46)
[2018-05-17] MEDS: NIFEdipine (XL) 30 MG TAB PO (10:47)
[2018-05-17] MEDS: HEPARIN 5,000 UNIT/0.5 ML VIAL SC ×2 (10:55→22:31)
[2018-05-17] MEDS ORDERED: SODIUM CHLORIDE 0.9% 1L BAG IV (16:30)
[2018-05-17] MEDS ORDERED: ALBUMIN HUMAN 25% 50 ML IV (16:30)
[2018-05-17] MEDS: ACETAMINOPHEN 325 MG TAB PO (16:57)
[2018-05-18] MEDS: ACCU-CHEK XX (02:00)
[2018-05-18] MEDS: PANTOPRAZOLE (EC) 40 MG TAB PO (05:28)
[2018-05-18] MEDS: HYDROCODONE/APAP (5/325) TAB PO ×2 (05:30→10:02)
[2018-05-18] MEDS: INSULIN ASPART [NOVOLOG] 3 ML PEN SC ×4 (07:30→21:00)
[2018-05-18] MEDS: BALSAM PERU/CASTOR OIL 60 GM TUBE TOP ×2 (09:27→20:16)
[2018-05-18] MEDS: MULTIVIT/CA CARB/B CMPLX/FA TAB PO (09:31)
[2018-05-18] MEDS: predniSONE 5 MG TAB PO (09:32)
[2018-05-18] MEDS: HEPARIN 5,000 UNIT/0.5 ML VIAL SC ×2 (09:35→21:15)
[2018-05-18] MEDS: HEPARIN 1000 UNITS/ML 10 ML INJ CATHETER (12:20)
[2018-05-18] MEDS: METOPROLOL 25 MG TAB PO ×2 (12:29→20:14)
[2018-05-18] MEDS: GENTAMICIN 100 MG/50 ML NS IVPB (12:37)
[2018-05-18] MEDS: NIFEdipine (XL) 30 MG TAB PO (12:42)
[2018-05-18] MEDS: ACETAMINOPHEN 325 MG TAB PO (13:58)
[2018-05-18] MEDS: traMADol 50 MG TAB PO (20:13)
[2018-05-19] MEDS: ACCU-CHEK XX (02:00)
[2018-05-19] MEDS: traMADol 50 MG TAB PO ×3 (02:59→16:33)
[2018-05-19] MEDS: PANTOPRAZOLE (EC) 40 MG TAB PO (05:20)
[2018-05-19] MEDS: INSULIN ASPART [NOVOLOG] 3 ML PEN SC ×4 (07:30→21:00)
[2018-05-19] MEDS: NIFEdipine (XL) 30 MG TAB PO (09:39)
[2018-05-19] MEDS: predniSONE 5 MG TAB PO (09:39)
[2018-05-19] MEDS: METOPROLOL 25 MG TAB PO ×2 (09:39→20:14)
[2018-05-19] MEDS: MULTIVIT/CA CARB/B CMPLX/FA TAB PO (09:39)
[2018-05-19] MEDS: BALSAM PERU/CASTOR OIL 60 GM TUBE TOP ×2 (09:40→20:17)
[2018-05-19] MEDS: HEPARIN 5,000 UNIT/0.5 ML VIAL SC ×2 (09:51→20:15)
[2018-05-19] MEDS ORDERED: ALBUMIN HUMAN 25% 50 ML IV (18:30)
[2018-05-19] MEDS ORDERED: HEPARIN 1000 UNITS/ML 10 ML INJ CATHETER (18:30)
[2018-05-19] MEDS ORDERED: SODIUM CHLORIDE 0.9% 1L BAG IV (18:30)
[2018-05-19] MEDS: HYDROCODONE/APAP (5/325) TAB PO (19:05)
[2018-05-20] MEDS: HYDROCODONE/APAP (5/325) TAB PO (00:28)
[2018-05-20] MEDS: ACCU-CHEK XX (02:00)
[2018-05-20] MEDS: PANTOPRAZOLE (EC) 40 MG TAB PO (05:12)
[2018-05-20 07:30] LABS: ANION GAP 17 (8-16); BLOOD UREA NITROGEN 34 mg/dl (7-20); CALCIUM 7.4 mg/dl (8.4-10.2); CARBON DIOXIDE 24 mmol/L (21-31); CHLORIDE 98 mmol/L (97-110); CREATININE 5.62 mg/dl (0.61-1.24); GLUCOSE 91 mg/dl (70-220); POTASSIUM 4.6 mmol/L (3.5-5.1); SODIUM 134 mmol/L (135-144)
[2018-05-20] MEDS: INSULIN ASPART [NOVOLOG] 3 ML PEN SC ×2 (07:30→11:30)
[2018-05-20] MEDS: traMADol 50 MG TAB PO ×2 (08:06→14:42)
[2018-05-20] MEDS: MULTIVIT/CA CARB/B CMPLX/FA TAB PO (08:06)
[2018-05-20] MEDS: predniSONE 5 MG TAB PO (08:07)
[2018-05-20] MEDS: HEPARIN 5,000 UNIT/0.5 ML VIAL SC (08:08)
[2018-05-20] MEDS: BALSAM PERU/CASTOR OIL 60 GM TUBE TOP (08:11)
[2018-05-20] MEDS: METOPROLOL 25 MG TAB PO (12:19)
[2018-05-20] MEDS: NIFEdipine (XL) 30 MG TAB PO (12:20)
[2018-05-20] MEDS: HEPARIN 1000 UNITS/ML 10 ML INJ CATHETER (13:09)
[2018-05-20] MEDS: GENTAMICIN 100 MG/50 ML NS IVPB (13:59)
== END 2018-05-20 15:00 | DRG 314 ==
LOC: MS4 18:31 → PP2 05-09 05:40 → E/R 13:04 → MS4 15:53
PROC: 0JPV3XZ Removal of Tunneled Vascular Access Device from Upper Extremity Subcutaneous Tissue and Fascia, Percutaneous Approach (ICD-10-PCS; principal; 2018-05-12 14:41)
PROC: 0JHN3XZ Insertion of Tunneled Vascular Access Device into Right Lower Leg Subcutaneous Tissue and Fascia, Percutaneous Approach (ICD-10-PCS; 2018-05-12 14:41)
PROC: 06H033Z Insertion of Infusion Device into Inferior Vena Cava, Percutaneous Approach (ICD-10-PCS; 2018-05-12 14:41)
PROC: 05JY3ZZ Inspection of Upper Vein, Percutaneous Approach (ICD-10-PCS; 2018-05-12 14:41)
PROC: 5A1D70Z Performance of Urinary Filtration, Intermittent, Less than 6 Hours Per Day (ICD-10-PCS; 2018-05-12 14:41)
DX: T82.7XXA Infection and inflammatory reaction due to other cardiac and vascular devices, implants and grafts, initial encounter (principal); A41.53 Sepsis due to Serratia; N18.6 End stage renal disease; G92 Toxic encephalopathy; Z94.0 Kidney transplant status; I12.0 Hypertensive chronic kidney disease with stage 5 chronic kidney disease or end stage renal disease; N39.0 Urinary tract infection, site not specified; E11.22 Type 2 diabetes mellitus with diabetic chronic kidney disease; M51.26 Other intervertebral disc displacement, lumbar region; E78.5 Hyperlipidemia, unspecified; M48.062 Spinal stenosis, lumbar region with neurogenic claudication; M51.36 Other intervertebral disc degeneration, lumbar region; H54.8 Legal blindness, as defined in USA; Y84.1 Kidney dialysis as the cause of abnormal reaction of the patient, or of later complication, without mention of misadventure at the time of the procedure; T40.605A Adverse effect of unspecified narcotics, initial encounter; Y92.89 Other specified places as the place of occurrence of the external cause; Y92.238 Other place in hospital as the place of occurrence of the external cause; Z89.511 Acquired absence of right leg below knee; Z99.2 Dependence on renal dialysis; Z89.412 Acquired absence of left great toe
CPT/HCPCS: 36590; 71045; 72100; 72128; 72131; 76937; 80048; 80053; 80202; 81001; 82140; 82550; 82553; 82962; 83036; 83605; 83735; 84100; 84443; 84484; 85025; 85610; 85730; 86706; 87040; 87070; 87075; 87081; 87086; 87340; 90935; 93005; 93306; 96374; 96375; 97110; 97161; 97530; 99291-25

== ENCOUNTER 2019-03-18 15:08 | Inpatient (IN) | payer MEDICARE, OTHER ==
[2019-03-18 17:41] LABS: ADD MAN DIFF? NO
[2019-03-18 17:47] LABS: ABNORMAL IP MESSAGE 1; BASOPHILS % 0.1 % (0.0-2.0); EOSINOPHILS % 0.1 % (0.0-7.0); HEMATOCRIT 34.8 % (42.0-52.0); HEMOGLOBIN 11.9 g/dl (14.0-18.0); LYMPHOCYTES # 0.5 10^3/ul (0.8-2.9); LYMPHOCYTES % 5.2 % (15.0-51.0); MEAN CORPUSCULAR HEMOGLOBIN 33.1 pg (29.0-33.0); MEAN CORPUSCULAR HGB CONC 34.2 g/dl (32.0-37.0); MEAN CORPUSCULAR VOLUME 96.7 fl (82.0-101.0); MEAN PLATELET VOLUME 9.4 fl (7.4-10.4); MONOCYTE # 0.8 10^3/ul (0.3-0.9); MONOCYTES % 8.4 % (0.0-11.0); NEUTROPHIL # 7.9 10^3/ul (1.6-7.5); NEUTROPHILS % 85.3 % (39.0-77.0); PLATELET COUNT 245 10^3/UL (140-415); POSITIVE DIFF @See below; RED CELL DISTRIBUTION WIDTH 12.8 % (11.5-14.5)
[2019-03-18 17:47] LABS: WHITE BLOOD COUNT 9.2 10^3/ul (4.8-10.8)
[2019-03-18] MEDS: SODIUM CHLORIDE 0.9% 1L BAG IV* (17:56)
[2019-03-18] MEDS: ACETAMINOPHEN 325 MG TAB PO (17:59)
[2019-03-18] MEDS: CEFEPIME 2GM/50 ML (PMX) 50 ML IVPB (17:59)
[2019-03-18 18:05] LABS: INR 0.96; PROTIME 12.9 Sec (11.9-14.9)
[2019-03-18 18:07] LABS: ALANINE AMINOTRANSFERASE 12 IU/L (13-69); ALBUMIN 3.9 g/dl (3.3-4.9); ALBUMIN/GLOBULIN RATIO 1.11; ALKALINE PHOSPHATASE 90 IU/L (42-121); ANION GAP 14 (5-13); ASPARTATE AMINO TRANSFERASE 16 IU/L (15-46); BILIRUBIN,INDIRECT 0.3 mg/dl (0-1.1); BILIRUBIN,TOTAL 0.3 mg/dl (0.2-1.3); BLOOD UREA NITROGEN 52 mg/dl (7-20); CALCIUM 8.7 mg/dl (8.4-10.2); CARBON DIOXIDE 27 mmol/L (21-31); CHLORIDE 87 mmol/L (97-110); CREATININE 6.05 mg/dl (0.61-1.24); Estimated GFR 9 mL/min (>60); GLUCOSE 221 mg/dl (70-220); POTASSIUM 4.2 mmol/L (3.5-5.1); SODIUM 128 mmol/L (135-144); TOTAL PROTEIN 7.4 g/dl (6.1-8.1)
[2019-03-18 18:19] LABS: TROPONIN-I < 0.012 ng/ml (0.000-0.120)
[2019-03-18] MEDS: VANCOMYCIN 1 GM (PMX) 250 ML IVPB (18:40)
[2019-03-18 20:14] LABS: LACTIC ACID 1.3 mmol/L (0.5-2.0)
[2019-03-18] MEDS ORDERED: ONDANSETRON 4 MG INJ IV (20:30)
[2019-03-18] MEDS ORDERED: ACETAMINOPHEN 325 MG TAB PO (20:30)
[2019-03-18 22:42] LABS: LACTIC ACID 1.9 mmol/L (0.5-2.0)
[2019-03-19] MEDS ORDERED: GLUCOSE GEL 15 GRAM TUBE BUCCAL (00:30)
[2019-03-19] MEDS ORDERED: DEXTROSE 50% 50 ML SYRINGE IV ×2 (00:30)
[2019-03-19] MEDS ORDERED: METOCLOPRAMIDE 10 MG INJ IV (00:30)
[2019-03-19] MEDS ORDERED: GLUCOSE GEL 15 GRAM TUBE PO ×2 (00:30)
[2019-03-19] MEDS ORDERED: GLUCAGON 1 MG INJ IM (00:30)
[2019-03-19] MEDS: SOD CHLORIDE 0.9% 1,000 ML IV (01:34)
[2019-03-19] MEDS: CHLORPROMAZINE 10 MG TAB PO ×2 (01:47→12:13)
[2019-03-19] MEDS: ACCU-CHEK XX (02:00)
[2019-03-19 05:54] LABS: ADD MAN DIFF? NO
[2019-03-19 05:59] LABS: BASOPHILS % 0.1 % (0.0-2.0); EOSINOPHILS # 0.1 10^3/ul (0.0-0.5); EOSINOPHILS % 1.1 % (0.0-7.0); HEMATOCRIT 30.9 % (42.0-52.0); HEMOGLOBIN 10.2 g/dl (14.0-18.0); LYMPHOCYTES # 0.6 10^3/ul (0.8-2.9); LYMPHOCYTES % 8.1 % (15.0-51.0); MEAN CORPUSCULAR HEMOGLOBIN 32.3 pg (29.0-33.0); MEAN CORPUSCULAR VOLUME 97.8 fl (82.0-101.0); MEAN PLATELET VOLUME 10.1 fl (7.4-10.4); MONOCYTE # 0.8 10^3/ul (0.3-0.9); NEUTROPHILS % 78.9 % (39.0-77.0); PLATELET COUNT 216 10^3/UL (140-415); RED BLOOD COUNT 3.16 10^6/ul (4.70-6.10)
[2019-03-19 05:59] LABS: WHITE BLOOD COUNT 7.6 10^3/ul (4.8-10.8)
[2019-03-19] MEDS: PANTOPRAZOLE (EC) 40 MG TAB PO (06:04)
[2019-03-19 06:34] LABS: ALANINE AMINOTRANSFERASE 22 IU/L (13-69); ALBUMIN 2.9 g/dl (3.3-4.9); ALKALINE PHOSPHATASE 71 IU/L (42-121); ANION GAP 11 (5-13); ASPARTATE AMINO TRANSFERASE 16 IU/L (15-46); BILIRUBIN,INDIRECT 0.1 mg/dl (0-1.1); BILIRUBIN,TOTAL 0.1 mg/dl (0.2-1.3); BLOOD UREA NITROGEN 58 mg/dl (7-20); CALCIUM 8.3 mg/dl (8.4-10.2); CARBON DIOXIDE 28 mmol/L (21-31); CHLORIDE 91 mmol/L (97-110); CREATININE 6.42 mg/dl (0.61-1.24); Estimated GFR 9 mL/min (>60); GLUCOSE 165 mg/dl (70-220); POTASSIUM 3.5 mmol/L (3.5-5.1); SODIUM 130 mmol/L (135-144); TOTAL PROTEIN 6.1 g/dl (6.1-8.1)
[2019-03-19] MEDS: CEFTRIAXONE 1 GM/50 ML (PMX) 50 ML IVPB (08:25)
[2019-03-19] MEDS: INSULIN ASPART [NOVOLOG] 3 ML PEN SC ×4 (08:27→21:18)
[2019-03-19] MEDS: ACETAMINOPHEN 325 MG TAB PO (17:43)
[2019-03-19 20:09] LABS: HEPATITIS B SURFACE ANTIGEN NEGATIVE (NEGATIVE)
[2019-03-20] MEDS: ACCU-CHEK XX (02:00)
[2019-03-20] MEDS: SOD CHLORIDE 0.9% 1,000 ML IV ×2 (02:28→20:35)
[2019-03-20] MEDS: PANTOPRAZOLE (EC) 40 MG TAB PO (05:49)
[2019-03-20] MEDS: CHLORPROMAZINE 10 MG TAB PO ×2 (05:57→12:46)
[2019-03-20 06:23] LABS: ADD MAN DIFF? NO
[2019-03-20 06:34] LABS: BASOPHILS % 0.2 % (0.0-2.0); EOSINOPHILS # 0.1 10^3/ul (0.0-0.5); EOSINOPHILS % 1.4 % (0.0-7.0); HEMATOCRIT 30.7 % (42.0-52.0); HEMOGLOBIN 10.2 g/dl (14.0-18.0); LYMPHOCYTES # 0.8 10^3/ul (0.8-2.9); LYMPHOCYTES % 9.3 % (15.0-51.0); MEAN CORPUSCULAR HEMOGLOBIN 32.3 pg (29.0-33.0); MEAN CORPUSCULAR HGB CONC 33.2 g/dl (32.0-37.0); MEAN CORPUSCULAR VOLUME 97.2 fl (82.0-101.0); MEAN PLATELET VOLUME 10.1 fl (7.4-10.4); MONOCYTE # 0.8 10^3/ul (0.3-0.9); MONOCYTES % 9.9 % (0.0-11.0); NEUTROPHIL # 6.4 10^3/ul (1.6-7.5); NEUTROPHILS % 78.3 % (39.0-77.0); PLATELET COUNT 221 10^3/UL (140-415); RED BLOOD COUNT 3.16 10^6/ul (4.70-6.10); RED CELL DISTRIBUTION WIDTH 12.8 % (11.5-14.5)
[2019-03-20 06:34] LABS: WHITE BLOOD COUNT 8.1 10^3/ul (4.8-10.8)
[2019-03-20 06:56] LABS: ANION GAP 13 (5-13); BLOOD UREA NITROGEN 68 mg/dl (7-20); CALCIUM 8.3 mg/dl (8.4-10.2); CARBON DIOXIDE 25 mmol/L (21-31); CHLORIDE 91 mmol/L (97-110); CREATININE 7.77 mg/dl (0.61-1.24); Estimated GFR 7 mL/min (>60); GLUCOSE 154 mg/dl (70-220); PHOSPHORUS 3.2 mg/dl (2.5-4.9); POTASSIUM 3.7 mmol/L (3.5-5.1); SODIUM 129 mmol/L (135-144); URIC ACID 7.6 mg/dl (3.1-7.9)
[2019-03-20] MEDS: CEFTRIAXONE 1 GM/50 ML (PMX) 50 ML IVPB (08:10)
[2019-03-20] MEDS: INSULIN ASPART [NOVOLOG] 3 ML PEN SC ×4 (08:14→20:35)
[2019-03-20] MEDS: SOD CHLORIDE 0.9% 250 ML IV (11:33)
[2019-03-20] MEDS: HEPARIN 1000 UNITS/ML 10 ML INJ CATHETER (12:41)
[2019-03-20] MEDS: ACETAMINOPHEN 325 MG TAB PO (12:46)
[2019-03-20] MEDS: BACLOFEN 10 MG TAB PO (14:52)
[2019-03-20] MEDS: PROCHLORPERAZINE 10 MG TAB PO ×2 (16:11→20:33)
[2019-03-21] MEDS: ACCU-CHEK XX (02:00)
[2019-03-21 06:27] LABS: ADD MAN DIFF? NO
[2019-03-21 06:37] LABS: ABNORMAL IP MESSAGE 1; BASOPHILS % 0.2 % (0.0-2.0); EOSINOPHILS % 0.1 % (0.0-7.0); HEMATOCRIT 28.3 % (42.0-52.0); HEMOGLOBIN 9.7 g/dl (14.0-18.0); LYMPHOCYTES # 0.4 10^3/ul (0.8-2.9); LYMPHOCYTES % 2.7 % (15.0-51.0); MEAN CORPUSCULAR HEMOGLOBIN 33.8 pg (29.0-33.0); MEAN CORPUSCULAR HGB CONC 34.3 g/dl (32.0-37.0); MEAN CORPUSCULAR VOLUME 98.6 fl (82.0-101.0); MEAN PLATELET VOLUME 10.5 fl (7.4-10.4); MONOCYTE # 0.7 10^3/ul (0.3-0.9); MONOCYTES % 5.2 % (0.0-11.0); NEUTROPHIL # 12.1 10^3/ul (1.6-7.5); PLATELET COUNT 163 10^3/UL (140-415); POSITIVE DIFF @See below; RED BLOOD COUNT 2.87 10^6/ul (4.70-6.10)
[2019-03-21 06:37] LABS: WHITE BLOOD COUNT 13.3 10^3/ul (4.8-10.8)
[2019-03-21] MEDS: PANTOPRAZOLE (EC) 40 MG TAB PO (06:38)
[2019-03-21 07:27] LABS: ANION GAP 12 (5-13); BLOOD UREA NITROGEN 46 mg/dl (7-20); CALCIUM 8.5 mg/dl (8.4-10.2); CARBON DIOXIDE 24 mmol/L (21-31); CHLORIDE 98 mmol/L (97-110); CREATININE 6.19 mg/dl (0.61-1.24); Estimated GFR 9 mL/min (>60); GLUCOSE 143 mg/dl (70-220); POTASSIUM 3.1 mmol/L (3.5-5.1); SODIUM 134 mmol/L (135-144)
[2019-03-21] MEDS: INSULIN ASPART [NOVOLOG] 3 ML PEN SC ×4 (07:34→20:59)
[2019-03-21] MEDS: CEFTRIAXONE 1 GM/50 ML (PMX) 50 ML IVPB (08:36)
[2019-03-21] MEDS: BACLOFEN 10 MG TAB PO ×2 (08:36→20:40)
[2019-03-21] MEDS: PROCHLORPERAZINE 10 MG TAB PO ×3 (08:36→20:40)
[2019-03-21] MEDS: POTASSIUM CHLORIDE (SR) 10 MEQ TAB PO (12:09)
[2019-03-21] MEDS: SOD CHLORIDE 0.9% 1,000 ML IV (20:30)
[2019-03-21] MEDS: ALBUTEROL 0.083% (NEB) 2.5 MG/3 ML AMP HHN (21:01)
[2019-03-22] MEDS: ACCU-CHEK XX (02:00)
[2019-03-22] MEDS: ALBUTEROL 0.083% (NEB) 2.5 MG/3 ML AMP HHN ×4 (02:10→21:01)
[2019-03-22 05:18] LABS: ADD MAN DIFF? NO
[2019-03-22 05:22] LABS: BASOPHILS % 0.1 % (0.0-2.0); EOSINOPHILS # 0.1 10^3/ul (0.0-0.5); EOSINOPHILS % 0.6 % (0.0-7.0); HEMOGLOBIN 9.9 g/dl (14.0-18.0); LYMPHOCYTES # 0.6 10^3/ul (0.8-2.9); LYMPHOCYTES % 6.2 % (15.0-51.0); MEAN CORPUSCULAR HEMOGLOBIN 32.7 pg (29.0-33.0); MEAN CORPUSCULAR HGB CONC 31.9 g/dl (32.0-37.0); MEAN CORPUSCULAR VOLUME 102.3 fl (82.0-101.0); MEAN PLATELET VOLUME 10.5 fl (7.4-10.4); MONOCYTE # 0.7 10^3/ul (0.3-0.9); MONOCYTES % 6.7 % (0.0-11.0); NEUTROPHIL # 8.4 10^3/ul (1.6-7.5); NEUTROPHILS % 85.7 % (39.0-77.0); PLATELET COUNT 162 10^3/UL (140-415); RED BLOOD COUNT 3.03 10^6/ul (4.70-6.10); RED CELL DISTRIBUTION WIDTH 12.9 % (11.5-14.5)
[2019-03-22 05:22] LABS: WHITE BLOOD COUNT 9.9 10^3/ul (4.8-10.8)
[2019-03-22] MEDS: PANTOPRAZOLE (EC) 40 MG TAB PO (05:26)
[2019-03-22 06:01] LABS: ANION GAP 12 (5-13); BLOOD UREA NITROGEN 53 mg/dl (7-20); CALCIUM 8.4 mg/dl (8.4-10.2); CARBON DIOXIDE 24 mmol/L (21-31); CHLORIDE 97 mmol/L (97-110); CREATININE 7.55 mg/dl (0.61-1.24); Estimated GFR 7 mL/min (>60); GLUCOSE 184 mg/dl (70-220); POTASSIUM 3.4 mmol/L (3.5-5.1); SODIUM 133 mmol/L (135-144)
[2019-03-22] MEDS: CEFTRIAXONE 1 GM/50 ML (PMX) 50 ML IVPB (08:10)
[2019-03-22] MEDS: BACLOFEN 10 MG TAB PO ×2 (08:10→22:01)
[2019-03-22] MEDS: PROCHLORPERAZINE 10 MG TAB PO ×3 (08:10→22:01)
[2019-03-22] MEDS: INSULIN ASPART [NOVOLOG] 3 ML PEN SC ×4 (08:18→22:10)
[2019-03-22] MEDS: traMADol 50 MG TAB PO (14:21)
[2019-03-23] MEDS: ACCU-CHEK XX (02:00)
[2019-03-23] MEDS: ALBUTEROL 0.083% (NEB) 2.5 MG/3 ML AMP HHN ×4 (02:44→19:39)
[2019-03-23] MEDS: PANTOPRAZOLE (EC) 40 MG TAB PO (06:00)
[2019-03-23 06:56] LABS: ANION GAP 12 (5-13); BLOOD UREA NITROGEN 57 mg/dl (7-20); CALCIUM 8.3 mg/dl (8.4-10.2); CARBON DIOXIDE 21 mmol/L (21-31); CHLORIDE 99 mmol/L (97-110); CREATININE 7.88 mg/dl (0.61-1.24); Estimated GFR 7 mL/min (>60); GLUCOSE 178 mg/dl (70-220); POTASSIUM 3.6 mmol/L (3.5-5.1); SODIUM 132 mmol/L (135-144)
[2019-03-23] MEDS: INSULIN ASPART [NOVOLOG] 3 ML PEN SC ×4 (08:00→21:00)
[2019-03-23] MEDS: traMADol 50 MG TAB PO (09:27)
[2019-03-23] MEDS: BACLOFEN 10 MG TAB PO (11:19)
[2019-03-23] MEDS: CEFTRIAXONE 1 GM/50 ML (PMX) 50 ML IVPB (11:19)
[2019-03-23] MEDS: PROCHLORPERAZINE 10 MG TAB PO ×2 (11:19→12:15)
[2019-03-23] MEDS: MUPIROCIN 2% 22 GM OINT TOP (11:20)
[2019-03-23] MEDS: predniSONE 5 MG TAB PO (15:30)
[2019-03-23] MEDS ORDERED: VANCOMYCIN IV PER PHARMACY XX (16:00)
[2019-03-23] MEDS: VANCOMYCIN HCL 1.5 GM in SOD CHLORIDE 0.9% 250 ML IVPB (18:34)
[2019-03-23] MEDS: MIDODRINE 5 MG TAB PO (21:00)
[2019-03-24] MEDS: ACCU-CHEK XX (02:00)
[2019-03-24] MEDS: ALBUTEROL 0.083% (NEB) 2.5 MG/3 ML AMP HHN ×4 (02:25→20:22)
[2019-03-24] MEDS: PANTOPRAZOLE (EC) 40 MG TAB PO (05:34)
[2019-03-24 06:17] LABS: ANION GAP 15 (5-13); BLOOD UREA NITROGEN 33 mg/dl (7-20); CALCIUM 8.9 mg/dl (8.4-10.2); CARBON DIOXIDE 20 mmol/L (21-31); CHLORIDE 102 mmol/L (97-110); CREATININE 5.56 mg/dl (0.61-1.24); Estimated GFR 10 mL/min (>60); GLUCOSE 159 mg/dl (70-220); POTASSIUM 3.9 mmol/L (3.5-5.1); SODIUM 137 mmol/L (135-144)
[2019-03-24] MEDS: INSULIN ASPART [NOVOLOG] 3 ML PEN SC ×4 (08:00→21:58)
[2019-03-24] MEDS: MIDODRINE 5 MG TAB PO ×2 (08:26→21:55)
[2019-03-24] MEDS: predniSONE 5 MG TAB PO (10:36)
[2019-03-24] MEDS: MUPIROCIN 2% 22 GM OINT TOP (10:37)
[2019-03-24] MEDS: CEFTRIAXONE 1 GM/50 ML (PMX) 50 ML IVPB (10:37)
[2019-03-24] MEDS: CEFEPIME 1GM/50 ML (PMX) 50 ML IVPB (14:38)
[2019-03-24 15:17] LABS: MAGNESIUM 2.4 mg/dl (1.7-2.5)
[2019-03-24 15:18] LABS: AMMONIA < 9 umol/l (9-30)
[2019-03-24] MEDS: ATORVASTATIN 20 MG TAB PO (21:56)
[2019-03-24] MEDS: ASPIRIN 81 MG TAB PO (22:01)
[2019-03-25] MEDS: ACCU-CHEK XX (02:00)
[2019-03-25] MEDS: ALBUTEROL 0.083% (NEB) 2.5 MG/3 ML AMP HHN ×4 (02:04→20:13)
[2019-03-25 06:16] LABS: ANION GAP 12 (5-13); BLOOD UREA NITROGEN 41 mg/dl (7-20); CALCIUM 8.4 mg/dl (8.4-10.2); CARBON DIOXIDE 23 mmol/L (21-31); CHLORIDE 100 mmol/L (97-110); CREATININE 6.69 mg/dl (0.61-1.24); Estimated GFR 8 mL/min (>60); GLUCOSE 153 mg/dl (70-220); SODIUM 135 mmol/L (135-144)
[2019-03-25 06:18] LABS: VANCOMYCIN,RANDOM 17.4 ug/ml
[2019-03-25] MEDS: PANTOPRAZOLE (EC) 40 MG TAB PO (07:01)
[2019-03-25 07:11] LABS: ADD MAN DIFF? NO
[2019-03-25 07:13] LABS: BASOPHILS % 0.4 % (0.0-2.0); EOSINOPHILS # 0.1 10^3/ul (0.0-0.5); EOSINOPHILS % 1.2 % (0.0-7.0); HEMATOCRIT 32.8 % (42.0-52.0); HEMOGLOBIN 10.6 g/dl (14.0-18.0); LYMPHOCYTES # 0.7 10^3/ul (0.8-2.9); LYMPHOCYTES % 8.3 % (15.0-51.0); MEAN CORPUSCULAR HEMOGLOBIN 32.4 pg (29.0-33.0); MEAN CORPUSCULAR HGB CONC 32.3 g/dl (32.0-37.0); MEAN CORPUSCULAR VOLUME 100.3 fl (82.0-101.0); MEAN PLATELET VOLUME 10.3 fl (7.4-10.4); MONOCYTE # 0.6 10^3/ul (0.3-0.9); MONOCYTES % 6.5 % (0.0-11.0); NEUTROPHILS % 82.1 % (39.0-77.0); PLATELET COUNT 218 10^3/UL (140-415); RED BLOOD COUNT 3.27 10^6/ul (4.70-6.10); RED CELL DISTRIBUTION WIDTH 12.9 % (11.5-14.5)
[2019-03-25 07:13] LABS: WHITE BLOOD COUNT 8.5 10^3/ul (4.8-10.8)
[2019-03-25] MEDS: INSULIN ASPART [NOVOLOG] 3 ML PEN SC ×4 (08:10→21:00)
[2019-03-25 08:17] LABS: CHOL/HDL RATIO 2.3 RATIO; LDL CHOLESTEROL,CALCULATED 53 mg/dl
[2019-03-25 08:18] LABS: HDL CHOLESTEROL 49 mg/dl (30-78); TRIGLYCERIDES 58 mg/dl (0-149)
[2019-03-25 08:18] LABS: CHOLESTEROL 114 mg/dl (100-200)
[2019-03-25] MEDS: MIDODRINE 5 MG TAB PO (08:25)
[2019-03-25] MEDS: predniSONE 5 MG TAB PO (08:25)
[2019-03-25] MEDS: ASPIRIN 81 MG TAB PO (08:25)
[2019-03-25] MEDS: MUPIROCIN 2% 22 GM OINT TOP (08:28)
[2019-03-25] MEDS: CEFEPIME 1GM/50 ML (PMX) 50 ML IVPB ×2 (13:03→16:12)
[2019-03-25] MEDS: VANCOMYCIN 1 GM 250 ML IVPB (17:14)
[2019-03-25] MEDS: ATORVASTATIN 20 MG TAB PO (21:00)
[2019-03-26] MEDS: ALBUTEROL 0.083% (NEB) 2.5 MG/3 ML AMP HHN ×4 (01:50→20:18)
[2019-03-26] MEDS: ACCU-CHEK XX (02:00)
[2019-03-26 06:24] LABS: ANION GAP 12 (5-13); BLOOD UREA NITROGEN 32 mg/dl (7-20); CALCIUM 8.2 mg/dl (8.4-10.2); CARBON DIOXIDE 25 mmol/L (21-31); CHLORIDE 100 mmol/L (97-110); CREATININE 5.86 mg/dl (0.61-1.24); Estimated GFR 10 mL/min (>60); GLUCOSE 98 mg/dl (70-220); POTASSIUM 4.3 mmol/L (3.5-5.1); SODIUM 137 mmol/L (135-144)
[2019-03-26] MEDS: PANTOPRAZOLE (EC) 40 MG TAB PO (06:32)
[2019-03-26] MEDS: INSULIN ASPART [NOVOLOG] 3 ML PEN SC ×4 (07:47→20:49)
[2019-03-26] MEDS: predniSONE 5 MG TAB PO (08:12)
[2019-03-26] MEDS: ACETAMINOPHEN 325 MG TAB PO (08:12)
[2019-03-26] MEDS: ASPIRIN 81 MG TAB PO (08:12)
[2019-03-26] MEDS: MUPIROCIN 2% 22 GM OINT TOP (09:00)
[2019-03-26] MEDS: CEFEPIME 1GM/50 ML (PMX) 50 ML IVPB (12:27)
[2019-03-26] MEDS: PIPER-TAZO 2.25 GM (PMX) 50 ML IVPB ×2 (14:54→21:09)
[2019-03-26] MEDS: ATORVASTATIN 20 MG TAB PO (20:14)
[2019-03-27] MEDS: ACCU-CHEK XX ×2 (02:00→20:53)
[2019-03-27] MEDS: ALBUTEROL 0.083% (NEB) 2.5 MG/3 ML AMP HHN ×4 (02:53→21:13)
[2019-03-27] MEDS: PANTOPRAZOLE (EC) 40 MG TAB PO (05:47)
[2019-03-27] MEDS: PIPER-TAZO 2.25 GM (PMX) 50 ML IVPB ×3 (05:47→22:05)
[2019-03-27 06:09] LABS: ADD MAN DIFF? NO
[2019-03-27 06:26] LABS: WHITE BLOOD COUNT 10.5 10^3/ul (4.8-10.8)
[2019-03-27 06:26] LABS: BASOPHILS % 0.2 % (0.0-2.0); EOSINOPHILS # 0.1 10^3/ul (0.0-0.5); EOSINOPHILS % 0.9 % (0.0-7.0); HEMATOCRIT 32.1 % (42.0-52.0); HEMOGLOBIN 10.1 g/dl (14.0-18.0); LYMPHOCYTES # 1.1 10^3/ul (0.8-2.9); LYMPHOCYTES % 10.2 % (15.0-51.0); MEAN CORPUSCULAR HGB CONC 31.5 g/dl (32.0-37.0); MEAN CORPUSCULAR VOLUME 101.6 fl (82.0-101.0); MEAN PLATELET VOLUME 10.1 fl (7.4-10.4); MONOCYTE # 0.7 10^3/ul (0.3-0.9); MONOCYTES % 6.8 % (0.0-11.0); NEUTROPHIL # 8.5 10^3/ul (1.6-7.5); NEUTROPHILS % 80.8 % (39.0-77.0); PLATELET COUNT 245 10^3/UL (140-415); RED BLOOD COUNT 3.16 10^6/ul (4.70-6.10); RED CELL DISTRIBUTION WIDTH 13.2 % (11.5-14.5)
[2019-03-27 06:48] LABS: ANION GAP 12 (5-13); BLOOD UREA NITROGEN 46 mg/dl (7-20); CALCIUM 8.5 mg/dl (8.4-10.2); CARBON DIOXIDE 23 mmol/L (21-31); CHLORIDE 102 mmol/L (97-110); CREATININE 6.82 mg/dl (0.61-1.24); Estimated GFR 8 mL/min (>60); GLUCOSE 94 mg/dl (70-220); POTASSIUM 5.2 mmol/L (3.5-5.1); SODIUM 137 mmol/L (135-144)
[2019-03-27 06:50] LABS: AMMONIA < 9 umol/l (9-30)
[2019-03-27] MEDS: INSULIN ASPART [NOVOLOG] 3 ML PEN SC ×4 (08:00→20:52)
[2019-03-27] MEDS: MUPIROCIN 2% 22 GM OINT TOP (08:34)
[2019-03-27] MEDS: predniSONE 5 MG TAB PO (08:34)
[2019-03-27] MEDS: ASPIRIN 81 MG TAB PO (08:34)
[2019-03-27] MEDS: MIDODRINE 5 MG TAB PO ×2 (09:00→17:00)
[2019-03-27] MEDS: HEPARIN 1000 UNITS/ML 10 ML INJ CATHETER (18:20)
[2019-03-27] MEDS: ATORVASTATIN 20 MG TAB PO (22:06)
[2019-03-28] MEDS: ALBUTEROL 0.083% (NEB) 2.5 MG/3 ML AMP HHN ×4 (01:23→19:22)
[2019-03-28] MEDS: PIPER-TAZO 2.25 GM (PMX) 50 ML IVPB ×3 (06:03→21:46)
[2019-03-28] MEDS: PANTOPRAZOLE (EC) 40 MG TAB PO (06:03)
[2019-03-28 06:08] LABS: ADD MAN DIFF? NO
[2019-03-28 06:25] LABS: BASOPHILS % 0.3 % (0.0-2.0); EOSINOPHILS # 0.1 10^3/ul (0.0-0.5); EOSINOPHILS % 0.8 % (0.0-7.0); HEMOGLOBIN 9.7 g/dl (14.0-18.0); LYMPHOCYTES # 0.7 10^3/ul (0.8-2.9); LYMPHOCYTES % 6.5 % (15.0-51.0); MEAN CORPUSCULAR HEMOGLOBIN 32.3 pg (29.0-33.0); MEAN CORPUSCULAR HGB CONC 32.3 g/dl (32.0-37.0); MONOCYTE # 0.6 10^3/ul (0.3-0.9); MONOCYTES % 6.2 % (0.0-11.0); NEUTROPHIL # 8.8 10^3/ul (1.6-7.5); NEUTROPHILS % 85.2 % (39.0-77.0); PLATELET COUNT 212 10^3/UL (140-415); RED CELL DISTRIBUTION WIDTH 13.2 % (11.5-14.5)
[2019-03-28 06:25] LABS: WHITE BLOOD COUNT 10.3 10^3/ul (4.8-10.8)
[2019-03-28 06:46] LABS: ANION GAP 13 (5-13); BLOOD UREA NITROGEN 27 mg/dl (7-20); CALCIUM 7.9 mg/dl (8.4-10.2); CARBON DIOXIDE 22 mmol/L (21-31); CHLORIDE 100 mmol/L (97-110); CREATININE 4.58 mg/dl (0.61-1.24); Estimated GFR 13 mL/min (>60); GLUCOSE 86 mg/dl (70-220); POTASSIUM 4.2 mmol/L (3.5-5.1); SODIUM 135 mmol/L (135-144)
[2019-03-28] MEDS: INSULIN ASPART [NOVOLOG] 3 ML PEN SC ×4 (08:00→20:27)
[2019-03-28] MEDS: ASPIRIN 81 MG TAB PO (08:57)
[2019-03-28] MEDS: predniSONE 5 MG TAB PO (08:57)
[2019-03-28] MEDS: MIDODRINE 5 MG TAB PO ×2 (08:58→17:00)
[2019-03-28] MEDS: MUPIROCIN 2% 22 GM OINT TOP (08:58)
[2019-03-28] MEDS: LEVOFLOXACIN 500 MG TAB PO (12:25)
[2019-03-28] MEDS: ATORVASTATIN 20 MG TAB PO (20:25)
[2019-03-28] MEDS: CALCIUM CARBONATE 500 MG CHEW TAB PO (20:25)
[2019-03-29] MEDS: ACCU-CHEK XX (02:00)
[2019-03-29] MEDS: ALBUTEROL 0.083% (NEB) 2.5 MG/3 ML AMP HHN ×4 (02:12→21:21)
[2019-03-29] MEDS: PIPER-TAZO 2.25 GM (PMX) 50 ML IVPB ×3 (05:42→22:10)
[2019-03-29] MEDS: PANTOPRAZOLE (EC) 40 MG TAB PO (05:43)
[2019-03-29 06:26] LABS: ADD MAN DIFF? NO
[2019-03-29 06:27] LABS: WHITE BLOOD COUNT 7.8 10^3/ul (4.8-10.8)
[2019-03-29 06:27] LABS: BASOPHILS % 0.3 % (0.0-2.0); EOSINOPHILS # 0.1 10^3/ul (0.0-0.5); HEMATOCRIT 29.1 % (42.0-52.0); HEMOGLOBIN 9.3 g/dl (14.0-18.0); LYMPHOCYTES # 0.9 10^3/ul (0.8-2.9); LYMPHOCYTES % 11.7 % (15.0-51.0); MEAN PLATELET VOLUME 10.1 fl (7.4-10.4); MONOCYTE # 0.6 10^3/ul (0.3-0.9); MONOCYTES % 8.2 % (0.0-11.0); NEUTROPHIL # 6.1 10^3/ul (1.6-7.5); NEUTROPHILS % 77.8 % (39.0-77.0); PLATELET COUNT 211 10^3/UL (140-415); RED BLOOD COUNT 2.91 10^6/ul (4.70-6.10); RED CELL DISTRIBUTION WIDTH 13.2 % (11.5-14.5)
[2019-03-29 07:18] LABS: ANION GAP 12 (5-13); BLOOD UREA NITROGEN 32 mg/dl (7-20); CALCIUM 7.6 mg/dl (8.4-10.2); CARBON DIOXIDE 23 mmol/L (21-31); CHLORIDE 101 mmol/L (97-110); CREATININE 6.14 mg/dl (0.61-1.24); Estimated GFR 9 mL/min (>60); GLUCOSE 105 mg/dl (70-220); POTASSIUM 4.8 mmol/L (3.5-5.1); SODIUM 136 mmol/L (135-144)
[2019-03-29] MEDS: INSULIN ASPART [NOVOLOG] 3 ML PEN SC ×4 (08:00→21:00)
[2019-03-29] MEDS: CALCIUM CARBONATE 500 MG CHEW TAB PO ×3 (08:19→19:07)
[2019-03-29] MEDS: ASPIRIN 81 MG TAB PO (08:19)
[2019-03-29] MEDS: predniSONE 5 MG TAB PO (08:19)
[2019-03-29] MEDS: MIDODRINE 5 MG TAB PO ×3 (08:21→17:00)
[2019-03-29] MEDS: MUPIROCIN 2% 22 GM OINT TOP (08:21)
[2019-03-29] MEDS: HEPARIN 1000 UNITS/ML 10 ML INJ CATHETER (19:24)
[2019-03-29] MEDS: ATORVASTATIN 20 MG TAB PO (20:18)
[2019-03-30] MEDS: ALBUTEROL 0.083% (NEB) 2.5 MG/3 ML AMP HHN ×4 (01:33→19:49)
[2019-03-30] MEDS: ACCU-CHEK XX (02:00)
[2019-03-30] MEDS: PIPER-TAZO 2.25 GM (PMX) 50 ML IVPB ×3 (05:48→21:59)
[2019-03-30] MEDS: PANTOPRAZOLE (EC) 40 MG TAB PO (05:48)
[2019-03-30] MEDS: INSULIN ASPART [NOVOLOG] 3 ML PEN SC ×4 (08:00→21:00)
[2019-03-30] MEDS: MIDODRINE 5 MG TAB PO ×2 (09:00→17:00)
[2019-03-30] MEDS: CALCIUM CARBONATE 500 MG CHEW TAB PO ×3 (09:00→18:20)
[2019-03-30] MEDS: predniSONE 5 MG TAB PO (09:00)
[2019-03-30] MEDS: ASPIRIN 81 MG TAB PO (09:00)
[2019-03-30] MEDS: MUPIROCIN 2% 22 GM OINT TOP (09:06)
[2019-03-30] MEDS: LEVOFLOXACIN 500 MG TAB PO (11:10)
[2019-03-30] MEDS ORDERED: FENTAnyl 50 MCG/ML VIAL IV ×3 (17:00)
[2019-03-30] MEDS ORDERED: MEPERIDINE 25 MG INJ IV (17:00)
[2019-03-30] MEDS ORDERED: DIPHENHYDRAMINE 50 MG INJ IV ×2 (17:00→18:00)
[2019-03-30] MEDS ORDERED: ONDANSETRON 4 MG INJ IV (17:00)
[2019-03-30] MEDS: LIDOCAINE 1% (MPF) 30 ML INJ (17:13)
[2019-03-30] MEDS ORDERED: METOCLOPRAMIDE 10 MG INJ IV (18:00)
[2019-03-30] MEDS: ATORVASTATIN 20 MG TAB PO (21:58)
[2019-03-31] MEDS: ALBUTEROL 0.083% (NEB) 2.5 MG/3 ML AMP HHN ×4 (01:06→21:26)
[2019-03-31] MEDS: ACCU-CHEK XX (02:00)
[2019-03-31] MEDS: PIPER-TAZO 2.25 GM (PMX) 50 ML IVPB ×3 (05:30→23:08)
[2019-03-31] MEDS: PANTOPRAZOLE (EC) 40 MG TAB PO (05:30)
[2019-03-31 06:17] LABS: MAGNESIUM 2.3 mg/dl (1.7-2.5)
[2019-03-31 06:17] LABS: PHOSPHORUS 5.4 mg/dl (2.5-4.9)
[2019-03-31] MEDS: CALCIUM CARBONATE 500 MG CHEW TAB PO ×4 (09:00→20:32)
[2019-03-31] MEDS: ASPIRIN 81 MG TAB PO (09:00)
[2019-03-31] MEDS: MIDODRINE 5 MG TAB PO ×2 (09:00→17:00)
[2019-03-31] MEDS: INSULIN ASPART [NOVOLOG] 3 ML PEN SC ×4 (09:03→21:00)
[2019-03-31] MEDS: predniSONE 5 MG TAB PO (09:12)
[2019-03-31] MEDS: MUPIROCIN 2% 22 GM OINT TOP (09:12)
[2019-03-31] MEDS ORDERED: LIDOCAINE 1% (MDV) 20 ML INJ (10:02)
[2019-03-31 10:42] LABS: ANION GAP 15 (5-13); BLOOD UREA NITROGEN 30 mg/dl (7-20); CALCIUM 7.7 mg/dl (8.4-10.2); CARBON DIOXIDE 21 mmol/L (21-31); CHLORIDE 103 mmol/L (97-110); CREATININE 5.76 mg/dl (0.61-1.24); Estimated GFR 10 mL/min (>60); GLUCOSE 91 mg/dl (70-220); SODIUM 139 mmol/L (135-144)
[2019-03-31] MEDS ORDERED: HEPARIN 1000 UNITS/ML 10 ML INJ (10:46)
[2019-03-31] MEDS ORDERED: FENTAnyl 50 MCG/ML VIAL (10:57)
[2019-03-31] MEDS ORDERED: MIDAZOLAM 1 MG/ML 2 ML INJ (10:57)
[2019-03-31] MEDS: ACETAMINOPHEN 325 MG TAB PO ×2 (12:00→20:32)
[2019-03-31] MEDS: HEPARIN 1000 UNITS/ML 10 ML INJ CATHETER (17:19)
[2019-03-31] MEDS: ATORVASTATIN 20 MG TAB PO (20:32)
[2019-04-01] MEDS: ACCU-CHEK XX (02:00)
[2019-04-01] MEDS ORDERED: METOCLOPRAMIDE 5 MG TAB PO (05:00)
[2019-04-01] MEDS: PANTOPRAZOLE (EC) 40 MG TAB PO (06:21)
[2019-04-01] MEDS: ALBUTEROL 0.083% (NEB) 2.5 MG/3 ML AMP HHN ×3 (07:46→19:31)
[2019-04-01] MEDS: INSULIN ASPART [NOVOLOG] 3 ML PEN SC ×4 (08:00→20:32)
[2019-04-01] MEDS: PIPER-TAZO 2.25 GM (PMX) 50 ML IVPB ×3 (08:34→22:29)
[2019-04-01] MEDS: MULTIVIT/CA CARB/B CMPLX/FA TAB PO (08:36)
[2019-04-01] MEDS: predniSONE 5 MG TAB PO (08:37)
[2019-04-01] MEDS: FISH OIL 1,000 MG CAP PO ×2 (08:37→20:26)
[2019-04-01] MEDS: ASPIRIN 81 MG TAB PO (08:37)
[2019-04-01] MEDS: MIDODRINE 5 MG TAB PO ×2 (08:41→16:57)
[2019-04-01] MEDS: MUPIROCIN 2% 22 GM OINT TOP (08:42)
[2019-04-01] MEDS ORDERED: ELUXADOLINE 100 MG PO (09:00)
[2019-04-01] MEDS ORDERED: NON-FORMULARY/PATIENT OWN MED (Omega-3 Acid Ethyl Esters (Lovaza) 1 GM) PO (09:00)
[2019-04-01] MEDS: LEVOFLOXACIN 500 MG TAB PO (11:58)
[2019-04-01] MEDS: CALCIUM CARBONATE 500 MG CHEW TAB PO ×2 (12:20→20:26)
[2019-04-01] MEDS ORDERED: HEPARIN 1000 UNITS/ML 10 ML INJ CATHETER (16:30)
[2019-04-01] MEDS: ATORVASTATIN 20 MG TAB PO (20:26)
[2019-04-02] MEDS: ALBUTEROL 0.083% (NEB) 2.5 MG/3 ML AMP HHN ×3 (01:08→14:02)
[2019-04-02] MEDS: ACCU-CHEK XX (02:00)
[2019-04-02] MEDS: PANTOPRAZOLE (EC) 40 MG TAB PO (05:58)
[2019-04-02] MEDS: PIPER-TAZO 2.25 GM (PMX) 50 ML IVPB ×2 (05:58→14:00)
[2019-04-02] MEDS: INSULIN ASPART [NOVOLOG] 3 ML PEN SC ×4 (07:53→20:17)
[2019-04-02 07:55] LABS: ADD MAN DIFF? NO
[2019-04-02 08:05] LABS: WHITE BLOOD COUNT 7.2 10^3/ul (4.8-10.8)
[2019-04-02 08:05] LABS: BASOPHILS % 0.3 % (0.0-2.0); EOSINOPHILS # 0.1 10^3/ul (0.0-0.5); EOSINOPHILS % 1.4 % (0.0-7.0); HEMATOCRIT 28.6 % (42.0-52.0); HEMOGLOBIN 9.4 g/dl (14.0-18.0); LYMPHOCYTES # 0.9 10^3/ul (0.8-2.9); LYMPHOCYTES % 12.9 % (15.0-51.0); MEAN CORPUSCULAR HEMOGLOBIN 33.1 pg (29.0-33.0); MEAN CORPUSCULAR HGB CONC 32.9 g/dl (32.0-37.0); MEAN CORPUSCULAR VOLUME 100.7 fl (82.0-101.0); MEAN PLATELET VOLUME 10.4 fl (7.4-10.4); MONOCYTE # 0.6 10^3/ul (0.3-0.9); MONOCYTES % 7.8 % (0.0-11.0); NEUTROPHIL # 5.5 10^3/ul (1.6-7.5); NEUTROPHILS % 76.9 % (39.0-77.0); PLATELET COUNT 172 10^3/UL (140-415); RED BLOOD COUNT 2.84 10^6/ul (4.70-6.10); RED CELL DISTRIBUTION WIDTH 13.9 % (11.5-14.5)
[2019-04-02 08:20] LABS: ANION GAP 10 (5-13); BLOOD UREA NITROGEN 28 mg/dl (7-20); CALCIUM 7.4 mg/dl (8.4-10.2); CARBON DIOXIDE 28 mmol/L (21-31); CHLORIDE 101 mmol/L (97-110); CREATININE 5.79 mg/dl (0.61-1.24); Estimated GFR 10 mL/min (>60); GLUCOSE 115 mg/dl (70-220); POTASSIUM 4.4 mmol/L (3.5-5.1); SODIUM 139 mmol/L (135-144)
[2019-04-02 08:22] LABS: PHOSPHORUS 4.3 mg/dl (2.5-4.9)
[2019-04-02 08:22] LABS: MAGNESIUM 2.2 mg/dl (1.7-2.5)
[2019-04-02] MEDS: MIDODRINE 5 MG TAB PO ×2 (09:00→16:30)
[2019-04-02] MEDS: MUPIROCIN 2% 22 GM OINT TOP (09:00)
[2019-04-02] MEDS: ASPIRIN 81 MG TAB PO (09:08)
[2019-04-02] MEDS: predniSONE 5 MG TAB PO (09:08)
[2019-04-02] MEDS: FISH OIL 1,000 MG CAP PO ×2 (09:08→20:13)
[2019-04-02] MEDS: CALCIUM CARBONATE 500 MG CHEW TAB PO ×3 (09:08→20:14)
[2019-04-02] MEDS: MULTIVIT/CA CARB/B CMPLX/FA TAB PO (09:08)
[2019-04-02] MEDS: DAKINS 0.0125%(1/40) 473 ML SOLUTION TP (09:14)
[2019-04-02] MEDS: HEPARIN 1000 UNITS/ML 10 ML INJ CATHETER (17:19)
[2019-04-02] MEDS: [UNRECOGNIZED DRUG - REMARK] XX (19:30)
[2019-04-02] MEDS: ATORVASTATIN 20 MG TAB PO (20:14)
== END 2019-04-02 21:15 | disposition home or self-care (01) | DRG 239 ==
LOC: 6WM 03-20 15:24 → PP2 04-01 05:40 → E/R 15:08 → 2NE 20:10
PROC: 0Y6N0ZB Detachment at Left Foot, Partial 2nd Ray, Open Approach (ICD-10-PCS; 2019-03-30 15:00)
PROC: 0QBP0ZZ Excision of Left Metatarsal, Open Approach (ICD-10-PCS; 2019-03-30 15:00)
PROC: 0QBR0ZZ Excision of Left Toe Phalanx, Open Approach (ICD-10-PCS; 2019-03-30 15:00)
PROC: 06PY33Z Removal of Infusion Device from Lower Vein, Percutaneous Approach (ICD-10-PCS; principal; 2019-03-30 16:46)
PROC: 06H033Z Insertion of Infusion Device into Inferior Vena Cava, Percutaneous Approach (ICD-10-PCS; 2019-03-30 16:46)
PROC: B519YZA Fluoroscopy of Inferior Vena Cava using Other Contrast, Guidance (ICD-10-PCS; 2019-03-30 16:46)
PROC: 5A1D70Z Performance of Urinary Filtration, Intermittent, Less than 6 Hours Per Day (ICD-10-PCS; 2019-03-30 16:46)
DX: T82.7XXA Infection and inflammatory reaction due to other cardiac and vascular devices, implants and grafts, initial encounter (principal); A41.9 Sepsis, unspecified organism; N18.6 End stage renal disease; G92 Toxic encephalopathy; I12.0 Hypertensive chronic kidney disease with stage 5 chronic kidney disease or end stage renal disease; E87.1 Hypo-osmolality and hyponatremia; T86.12 Kidney transplant failure; M86.172 Other acute osteomyelitis, left ankle and foot; D63.1 Anemia in chronic kidney disease; E11.621 Type 2 diabetes mellitus with foot ulcer; E11.22 Type 2 diabetes mellitus with diabetic chronic kidney disease; E11.65 Type 2 diabetes mellitus with hyperglycemia; E78.5 Hyperlipidemia, unspecified; H54.8 Legal blindness, as defined in USA; L97.524 Non-pressure chronic ulcer of other part of left foot with necrosis of bone; R06.6 Hiccough; R62.7 Adult failure to thrive; B95.61 Methicillin susceptible Staphylococcus aureus infection as the cause of diseases classified elsewhere; B96.6 Bacteroides fragilis [B. fragilis] as the cause of diseases classified elsewhere; B95.2 Enterococcus as the cause of diseases classified elsewhere; Z16.21 Resistance to vancomycin; Z16.29 Resistance to other single specified antibiotic; Z16.24 Resistance to multiple antibiotics; Z68.24 Body mass index [BMI] 24.0-24.9, adult; Z99.2 Dependence on renal dialysis; Z89.511 Acquired absence of right leg below knee; Z89.412 Acquired absence of left great toe; Z79.4 Long term (current) use of insulin; Z79.52 Long term (current) use of systemic steroids
CPT/HCPCS: 36415; 70450; 70551; 71045; 73620; 80048; 80053; 80061; 80202; 82140; 82607; 82962; 83605; 83735; 84100; 84443; 84484; 84560; 85025; 85610; 85730; 87040-91; 87070; 87081; 87340; 87400; 88304; 88311; 90935; 93005; 93971; 94640; 94664; 96365; 96367; 99285-25